=== PATIENT | female | born 1955 | race Caucasian/White ===

== ENCOUNTER 2016-12-30 08:17 | Day surgery (SDC) | payer OTHER ==
[~2016-12-30 08:17] MED LIST: LACTATED RINGERS 1,000 ML IV SCH; LIDOCAINE 1% 20 ML VIAL (10MG/ML) FOR IV START INTRADERMA PRN
[2016-12-30] MEDS ORDERED: LIDOCAINE 1% 20 ML VIAL (10MG/ML) FOR IV START SQ ONE (08:39)
[2016-12-30 08:45] VITALS: RESP 16; TEMP 98.5
[2016-12-30] MEDS ORDERED: PROPOFOL 10 MG/ML 20 ML VIAL IV ONE (09:14)
--- NOTE | 2016-12-30 09:30 | P.PCN ---
Date of Procedure: 12/30/16 Procedure(s) Performed: BRIEF HISTORY: Patient is a 61-year-old pleasant white female, scheduled for an elective colonoscopy as a part of screening for colorectal neoplasia. PROCEDURE PERFORMED: Colonoscopy with biopsy. PREOPERATIVE DIAGNOSIS: Screening for colon cancer. IV sedation per Anesthesia. PROCEDURE: After informed consent was obtained, the patient, was brought into the endoscopy unit. IV conscious sedation was administered by Anesthesia under continuous monitoring. Digital rectal examination was normal. Initially the Olympus CF-160 flexible video colonoscope was then inserted in the rectum, gradually advanced into the cecum without any difficulty. Careful examination was performed as the scope was gradually being withdrawn. Ileocecal valve and the appendiceal orifice were visualized and appeared normal. Prep was excellent. Mucosa of the cecum, appeared normal. In the ascending colon there was a diminutive polyps 2 which was removed by biopsy. The rest of the ascending colon, transverse colon, descending colon, sigmoid colon, and rectum appeared normal. Retroflexion was performed in the rectum and no lesions were seen. The patient tolerated the procedure well. IMPRESSION: 2-3 mm diminutive polyp in the ascending colon and stool status post biopsy Rest of the colon appeared normal. RECOMMENDATIONS: Findings of this examination were discussed with the patient as well as her family. She was advised to follow with the biopsy results. If the biopsy shows a tubular adenoma she can have a repeat colonoscopy in 5 years.
[2016-12-30 10:28] VITALS: BP 134/84; PULSE 87
== END 2016-12-30 10:43 | disposition home or self-care (01) ==
LOC: ORWHC2ENDO 08:17
PROVIDERS: ATTEND Internal Medicine Gastroenterology
DX: Z12.11 Encounter for screening for malignant neoplasm of colon (principal); D12.2 Benign neoplasm of ascending colon; I49.9 Cardiac arrhythmia, unspecified; R00.0 Tachycardia, unspecified; E78.5 Hyperlipidemia, unspecified; Z88.0 Allergy status to penicillin; Z79.899 Other long term (current) drug therapy
CPT/HCPCS: 88305; 45380; J2704

== ENCOUNTER → 2017-06-16 | Outpatient (CLI) | payer OTHER ==
--- NOTE | 2017-06-16 15:56 | BD ---
EXAMINATION TYPE: MG DEXA axial skeleton. DATE OF EXAM: 06/16/2017 COMPARISON: 2014 CLINICAL HISTORY: breast ca, osteopenia Height: 5'4 Weight: 186 FRAX RISK QUESTIONS: Alcohol (3 or more units per day): no Family History (Parent hip fracture): no Glucocorticoids (More than 3mos): no (Ex: prednisone, prednisolone, methylprednisolone, dexamethasone, and hydrocortisone). History of Fracture in Adulthood: no Secondary Osteoporosis: 1. Type 1 Diabetes: no 2. Hyperthyroidism: no 3. Menopause before 45: no 4. Malnutrition: no 5. Chronic liver disease: no Rheumatoid Arthritis: no Current Tobacco Use: no RISK FACTORS HISTORY OF: Postmenopausal woman: MEDICATIONS: Additional Medications: cholesterol, vitamin d , c and multivitamin. Breast cancer Additional History: breast ca EXAM MEASUREMENTS: Bone mineral densitometry was performed using the [employer] System. Bone mineral density as measured about the Lumbar spine is: ----- L1-L4(G/cm2): 1.099 T Score Values are as follows: ----- L2: -0.7 ----- L3: -1.6 ----- L4: -0.5 ----- L1-L4: -0.7 Bone mineral density has: Decreased -4.6% since study of: 06/15/2015 Bone mineral density about the R hip (g/cm2): 0.867 Bone mineral density about the L hip (g/cm2): 0.845 T Score values are as follows: -----R Neck: -1.2 -----L Neck: -1.4 -----R Total: -0.2 -----L Total: 0.2 Bone mineral density has: Increased 0.1% since study of: 06/15/2015 IMPRESSION: Osteopenia (T Score between -2.5 and -1 as noted by T score values:L3, Vimal Hips There is slightly increased risk of fracture and the patient may be considered for treatment. Re-Screen 2-5 years. Bone density within the bilateral hips is improved 0.1% from 2015. Bone density within the lumbar spi ne is diminished 4.6% from 2015. NOTE: T-SCORE=SD OF THE YOUNG ADULT MEAN.
== END | disposition home or self-care (01) ==
LOC: RADBDWWP 09:19
PROVIDERS: ATTEND Internal Medicine Hematology & Oncology
DX: M85.852 Other specified disorders of bone density and structure, left thigh (principal); M85.851 Other specified disorders of bone density and structure, right thigh; M85.88 Other specified disorders of bone density and structure, other site; C50.112 Malignant neoplasm of central portion of left female breast; N95.1 Menopausal and female climacteric states; Z79.890 Hormone replacement therapy
CPT/HCPCS: 77080

== ENCOUNTER → 2017-07-18 | Outpatient (CLI) | payer OTHER ==
--- NOTE | 2017-07-18 11:59 | XR ---
EXAMINATION TYPE: XR chest 2V DATE OF EXAM: 07/18/2017 COMPARISON: Prior chest x-ray 07/28/2016 HISTORY: Breast cancer TECHNIQUE: Frontal and lateral views of the chest are obtained. FINDINGS: There is no focal air space opacity, pleural effusion, or pneumothorax seen. The cardiac silhouette size is within normal limits. Patient is post mastectomies. There is mild spinal curvatur e. Prominent lung volume could be indicative of underlying COPD. The osseous structures are intact. IMPRESSION: No acute cardiopulmonary process.
== END | disposition home or self-care (01) ==
LOC: RADXRMAIN 11:37
PROVIDERS: ATTEND Internal Medicine Hematology & Oncology
DX: C50.112 Malignant neoplasm of central portion of left female breast (principal); I97.2 Postmastectomy lymphedema syndrome; G60.0 Hereditary motor and sensory neuropathy; Z17.0 Estrogen receptor positive status [ER+]
CPT/HCPCS: 71020

== ENCOUNTER → 2017-12-11 | Outpatient (CLI) | payer OTHER ==
[2017-12-11 11:19] VITALS: BMI 31.7
== END | disposition home or self-care (01) ==
LOC: MNTWWP 08:59
PROVIDERS: ATTEND Family Medicine
DX: R73.09 Other abnormal glucose (principal)
CPT/HCPCS: 97802

== ENCOUNTER → 2018-08-09 | Outpatient (CLI) | payer OTHER ==
--- NOTE | 2018-08-09 16:05 | XR ---
EXAMINATION TYPE: XR chest 2V DATE OF EXAM: 08/09/2018 COMPARISON: 07/18/2017 HISTORY: 63-year-old female with history of breast cancer and double mastectomy in 2013 TECHNIQUE: Frontal and lateral views FINDINGS: The cardiomediastinal silhouette, aorta, and pulmonary vasculature are within normal limits. Lungs an d pleural spaces are clear. IMPRESSION: No acute cardiopulmonary process.
== END ==
LOC: RADXRMAIN 15:38
PROVIDERS: ATTEND Internal Medicine Hematology & Oncology
DX: C50.112 Malignant neoplasm of central portion of left female breast (principal); I97.2 Postmastectomy lymphedema syndrome; G60.0 Hereditary motor and sensory neuropathy; Z17.0 Estrogen receptor positive status [ER+]
CPT/HCPCS: 71046

== ENCOUNTER → 2018-09-03 | Outpatient (CLI) | payer MEDICARE ==
--- NOTE | 2018-09-04 01:00 | MR ---
EXAMINATION TYPE: MR hips BILAT wo con DATE OF EXAM: 09/03/2018 COMPARISON: None HISTORY: Breast Cancer / Hip Pain x 6-12 mths Standard multiplanar, multisequence MRI departmental protocol Multiplanar, multisequence images of the hips were acquired. FINDINGS: There is 5 mm area of increased fluid signal in the lateral aspect of the right femoral hea d consistent with a degenerative cyst. Hip joint spaces are fairly normal. There is no evidence of av ascular necrosis. Proximal femurs are intact. There is no evidence of a soft tissue mass. I see no ev idence of a pelvic mass. Bladder distends smoothly. There is no free fluid in the pelvis. The acetabu la appear intact. Sacrum and coccyx appear intact. I do not see a definite focus to suggest metastati c disease. There is symmetric normal amount of hip joint fluid. IMPRESSION: Small degenerative cysts in the right femoral head. No evidence of any significant arthritic disease. I do not see evidence for metastatic disease. No evidence of avascular necrosis.
== END | disposition home or self-care (01) ==
LOC: RADMRIMAIN 07:06
PROVIDERS: ATTEND Internal Medicine Hematology & Oncology
DX: M85.651 Other cyst of bone, right thigh (principal); M25.552 Pain in left hip; C50.112 Malignant neoplasm of central portion of left female breast

== ENCOUNTER → 2019-06-17 | Outpatient (CLI) | payer MEDICARE ==
--- NOTE | 2019-06-18 11:54 | BD ---
EXAMINATION TYPE: Axial Bone Density DATE OF EXAM: 06/17/2019 COMPARISON: 2017 CLINICAL HISTORY: M 85.9, C 50.112 Height: 63.5 Weight: 166 FRAX RISK QUESTIONS: Alcohol (3 or more units per day): no Family History (Parent hip fracture): no Glucocorticoids (More than 3mos): no (Ex: prednisone, prednisolone, methylprednisolone, dexamethasone, and hydrocortisone). History of Fracture in Adulthood: no Secondary Osteoporosis: 1. Type 1 Diabetes: no 2. Hyperthyroidism: no 3. Menopause before 45: no 4. Malnutrition: no 5. Chronic liver disease: no Rheumatoid Arthritis: no Current Tobacco Use: no RISK FACTORS HISTORY OF: Family History of Osteoporosis: yes Active: yes Diet low in dairy products/other sources of calcium: no Postmenopausal woman: yes Take estrogen and/or progesterone medications: not now How long: hormonal contraceptives about 8 years Lost more than 2 inches in height since high school: no Frequent falls: no Poor Health: no Hyperparathyroidism: no Adrenal Insufficiency: no MEDICATIONS: Prednisone or other steroids: no Thyroid Medications: no Osteoporosis Medications: no Additional Medications: Femara ; cholesterol med; med for occasional tachycardia, Vitamin D, C & mult ivitamin Additional History: breast CA/radiation (fx both forearms as a child) EXAM MEASUREMENTS: Bone mineral densitometry was performed using the [employer] System. Bone mineral density as measured about the Lumbar spine is: ----- L1-L4(G/cm2): 1.045 T Score Values are as follows: ----- L2: -1.3 ----- L3: -1.4 ----- L4: -1.7 ----- L1-L4: -1.1 Bone mineral density has: Decreased -6.0% since study of: 06/16/2017 Bone mineral density about the R hip (g/cm2): 0.866 Bone mineral density about the L hip (g/cm2): 0.820 T Score values are as follows: -----R Neck: -1.2 -----L Neck: -1.6 -----R Total: -0.4 -----L Total: -0.2 Bone mineral density has: Decreased -4.1% since study of: 06/16/2017 IMPRESSION: Osteopenia (T Score between -2.5 and -1). There is slightly increased risk of fracture and the patient may be considered for treatment. Re-Screen 2-5 years. NOTE: T-SCORE=SD OF THE YOUNG ADULT MEAN.
== END | disposition home or self-care (01) ==
LOC: RADBDWWP 10:27
PROVIDERS: ATTEND Internal Medicine Hematology & Oncology
DX: M85.851 Other specified disorders of bone density and structure, right thigh (principal); M85.852 Other specified disorders of bone density and structure, left thigh; M85.88 Other specified disorders of bone density and structure, other site; C50.112 Malignant neoplasm of central portion of left female breast
CPT/HCPCS: 77080

== ENCOUNTER → 2020-10-07 | Outpatient (CLI) | payer MEDICARE ==
--- NOTE | 2020-10-09 16:18 | BD ---
EXAMINATION TYPE: Axial Bone Density DATE OF EXAM: 10/07/2020 COMPARISON: NONE CLINICAL HISTORY: Height: 64 Weight: 176.4 FRAX RISK QUESTIONS: Alcohol (3 or more units per day): no Family History (Parent hip fracture): no Glucocorticoids (More than 3mos): no (Ex: prednisone, prednisolone, methylprednisolone, dexamethasone, and hydrocortisone). History of Fracture in Adulthood: no Secondary Osteoporosis: 1. Type 1 Diabetes: no 2. Hyperthyroidism: no 3. Menopause before 45: no 4. Malnutrition: no 5. Chronic liver disease: no Rheumatoid Arthritis: no Current Tobacco Use: no RISK FACTORS HISTORY OF: History of Wrist Fracture: bilateral as a child Surgery to Spine/Hip(right/left)/Wrist (right/left): no Family History of Osteoporosis: yes Active: yes Diet low in dairy products/other sources of calcium: no Lost more than 2 inches in height since high school: no MEDICATIONS: letrozole, simvastatin, tachycardia med Additional History: EXAM MEASUREMENTS: Bone mineral densitometry was performed using the [employer] System. Bone mineral density as measured about the Lumbar spine is: ----- L1-L4(G/cm2): 1.115 T Score Values are as follows: ----- L2: -0.9 ----- L3: -1.1 ----- L4: -0.6 ----- L1-L4: -0.5 Bone mineral density has: increased 7.5 % since study of: 06.17.2019 Bone mineral density about the R hip (g/cm2): 0.856 Bone mineral density about the L hip (g/cm2): 0.838 T Score values are as follows: -----R Neck: -1.3 -----L Neck: -1.4 -----R Total: -0.3 -----L Total: 0.0 Bone mineral density has: increased 2.4 % since study of: 06.17.2019 IMPRESSION: Osteopenia (T Score between -2.5 and -1). There is slightly increased risk of fracture and the patient may be considered for treatment. Re-Screen 2-5 years. NOTE: T-SCORE=SD OF THE YOUNG ADULT MEAN.
== END | disposition home or self-care (01) ==
LOC: RADBDWWP 15:25
PROVIDERS: ATTEND Family Medicine
DX: M85.80 Other specified disorders of bone density and structure, unspecified site (principal)
CPT/HCPCS: 77080

== ENCOUNTER → 2021-07-27 | Outpatient (CLI) | payer MEDICARE ==
--- NOTE | 2021-07-27 20:00 | BD ---
EXAMINATION TYPE: Axial Bone Density DATE OF EXAM: 07/27/2021 COMPARISON: 10/07/2020 CLINICAL HISTORY: Postmenopausal screening Height: 64 Weight: 178.8 FRAX RISK QUESTIONS: Alcohol (3 or more units per day): no Family History (Parent hip fracture): no Glucocorticoids (More than 3mos): no (Ex: prednisone, prednisolone, methylprednisolone, dexamethasone, and hydrocortisone). History of Fracture in Adulthood: no Secondary Osteoporosis: 1. Type 1 Diabetes: no 2. Hyperthyroidism: no 3. Menopause before 45: no 4. Malnutrition: no 5. Chronic liver disease: no Rheumatoid Arthritis: no Current Tobacco Use: no RISK FACTORS HISTORY OF: Surgery to Spine/Hip(right/left)/Wrist (right/left): no Family History of Osteoporosis: yes Active: yes Diet low in dairy products/other sources of calcium: no Postmenopausal woman: yes Lost more than 2 inches in height since high school: no MEDICATIONS: letrozole, simvastatin, vitamins, calcium Additional History: EXAM MEASUREMENTS: Bone mineral densitometry was performed using the [employer] System. Bone mineral density as measured about the Lumbar spine is: ----- L1-L4(G/cm2): 1.041 T Score Values are as follows: ----- L2: -1.4 ----- L3: -1.1 ----- L4: -1.6 ----- L1-L4: -1.2 Bone mineral density has: decreased -6.1 % since study of: 10.07.2020 Bone mineral density about the R hip (g/cm2): 0.850 Bone mineral density about the L hip (g/cm2): 0.839 T Score values are as follows: -----R Neck: -1.3 -----L Neck: -1.4 -----R Total: -0.3 -----L Total: -0.2 Bone mineral density has: decreased -1.4 % since study of: 10.07.2020 IMPRESSION: Osteopenia (T Score between -2.5 and -1). There is slightly increased risk of fracture and the patient may be considered for treatment. Re-Screen 2-5 years. NOTE: T-SCORE=SD OF THE YOUNG ADULT MEAN.
== END | disposition home or self-care (01) ==
LOC: RADBDWWP 08:40
PROVIDERS: ATTEND Internal Medicine Hematology & Oncology
DX: Z13.820 Encounter for screening for osteoporosis (principal); M85.89 Other specified disorders of bone density and structure, multiple sites; Z79.899 Other long term (current) drug therapy
CPT/HCPCS: 77080

== ENCOUNTER 2022-06-24 11:31 | Day surgery (SDC) | payer MEDICARE ==
[~2022-06-24 11:31] MED LIST changes: +LIDOCAINE 1% (10MG/ML) FOR IV START INTRADERMA PRN; -LIDOCAINE 1% 20 ML VIAL (10MG/ML) FOR IV START INTRADERMA PRN
[2022-06-24 12:16] VITALS: TEMP 97.4
[2022-06-24] MEDS ORDERED: LACTATED RINGERS 1,000 ML IV ONE (12:17)
[2022-06-24] MEDS ORDERED: PROPOFOL 10 MG/ML 20 ML VIAL IV ONE (14:25)
--- NOTE | 2022-06-24 14:49 | P.PCN ---
Date of Procedure: 06/24/22 Procedure(s) Performed: BRIEF HISTORY: Patient is a 66-year-old pleasant white female scheduled for an elective colonoscopy as a part of evaluation of prior history of colon polyps. PROCEDURE PERFORMED: Colonoscopy snare polypectomy. PREOPERATIVE DIAGNOSIS: History of colon polyps. IV sedation per Anesthesia. PROCEDURE: After informed consent was obtained, the patient, was brought into the endoscopy unit. IV sedation was administered by Anesthesia under continuous monitoring. Digital rectal examination was normal. Initially the Olympus CF-160 flexible video colonoscope was then inserted in the rectum, gradually advanced into the cecum without any difficulty. Careful examination was performed as the scope was gradually being withdrawn. Ileocecal valve and the appendiceal orifice were visualized and appeared normal. Prep was excellent. Mucosa of the cecum, had a 5 limited polyp that was removed by snare polypectomy. Rest of the ascending colon, transverse colon, descending colon, sigmoid colon, and rectum appeared normal. Retroflexion was performed in the rectum and no lesions were s een. The patient tolerated the procedure well. IMPRESSION: 5 mm cecal polyp status post snare polypectomy Rest of the colon appeared normal RECOMMENDATIONS: Findings of this examination were discussed with the patient as well as her family. She was advised to follow with the biopsy results and if the biopsy results adenoma she can have a repeat colonoscopy in 5 years..
[2022-06-24 15:06] VITALS: BP 133/85; PULSE 80; RESP 16
== END 2022-06-24 15:26 | disposition home or self-care (01) ==
LOC: ORWHC2ENDO 11:31
PROVIDERS: ATTEND Internal Medicine Gastroenterology
DX: Z12.11 Encounter for screening for malignant neoplasm of colon (principal); D12.0 Benign neoplasm of cecum; Z86.010 Personal history of colon polyps; Z88.0 Allergy status to penicillin; Z88.1 Allergy status to other antibiotic agents; Z79.899 Other long term (current) drug therapy; Z85.3 Personal history of malignant neoplasm of breast
CPT/HCPCS: 88305; 45385; J2704

== ENCOUNTER → 2023-06-13 | Outpatient (CLI) | payer MEDICARE ==
--- NOTE | 2023-06-13 18:37 | BD ---
EXAMINATION TYPE: Axial Bone Density DATE OF EXAM: 06/13/2023 CLINICAL HISTORY: 67 years old Female. ICD-10 CODE: C50.112 MALIGNANT NEOPLASM OF CENTRAL PORTION OF L Height: 63.75" Weight: 182.7 FRAX RISK QUESTIONS: Alcohol (3 or more units per day): No Family History (Parent hip fracture): No Glucocorticoids (More than 3mos): No (Ex: prednisone, prednisolone, methylprednisolone, dexamethasone, and hydrocortisone). History of Fracture in Adulthood: No Secondary Osteoporosis: 1. Type 1 Diabetes: No 2. Hyperthyroidism: No 3. Menopause before 45: No 4. Malnutrition: No 5. Chronic liver disease: No Rheumatoid Arthritis: No Current Tobacco Use: No RISK FACTORS HISTORY OF: Hip Fracture (Right/Left): No Spine Fracture: No History of Wrist Fracture: No Surgery to Spine/Hip(right/left)/Wrist (right/left): No Family History of Osteoporosis: No Active: Yes Diet low in dairy products/other sources of calcium: No Postmenopausal woman: Yes Lost more than 2 inches in height since high school: No Frequent falls: No Poor Health: No Hyperparathyroidism: No Adrenal Insufficiency: No MEDICATIONS: Prednisone or other steroids: No Thyroid Medications: No Osteoporosis Medications: No Additional Medications: Simvastatin, blood pressure medication/heart medication, roloxefene, vitamin c, calcium, multivitamin, vitamin D, omega, glucosamine, low-dose aspirin Additional History: Hx of breast cancer 2012 EXAM MEASUREMENTS: Bone mineral densitometry was performed using the [employer] System. Bone mineral density as measured about the Lumbar spine is: ----- L1-L4(G/cm2): 1.142 T Score Values are as follows: ----- L1: 0.1 ----- L2: -1.0 ----- L3: -0.7 ----- L4: 0.0 ----- L1-L4: -0.3 Z Score Values are as follows: ----- L1: 1.1 ----- L2: 0.1 ----- L3: 0.4 ----- L4: 1.1 ----- L1-L4: 0.8 Bone mineral density has: increased 9.7% since study of: 07/27/2021 Bone mineral density about the R hip (g/cm2): 1.045 Bone mineral density about the L hip (g/cm2): 0.972 T Score values are as follows: -----R Neck: -0.8 -----L Neck: -1.5 -----R Total: 0.3 -----L Total: -0.3 Z Score values are as follows: -----R Neck: 0.5 -----L Neck: -0.2 -----R Total: 1.3 -----L Total: 0.7 Bone mineral density has: increased 3.6% since study of: 07/27/2021 FRAX%s: The graph provided illustrates a 9.5% chance for a major osteoporotic fx and a 1.3% chance fo r the hips probability for fx in 10 years time. IMPRESSION: Osteopenia (T Score between -2.5 and -1). There is slightly increased risk of fracture and the patient may be considered for treatment. Re-Screen 2-5 years. NOTE: T-SCORE=SD OF THE YOUNG ADULT MEAN.
== END | disposition home or self-care (01) ==
LOC: RADBDWWP 09:50
PROVIDERS: ATTEND Internal Medicine Hematology & Oncology
DX: C50.112 Malignant neoplasm of central portion of left female breast (principal); M85.89 Other specified disorders of bone density and structure, multiple sites; I97.2 Postmastectomy lymphedema syndrome; G60.0 Hereditary motor and sensory neuropathy; Z17.0 Estrogen receptor positive status [ER+]
CPT/HCPCS: 77080

== ENCOUNTER 2023-06-20 17:37 | Inpatient (IN) | payer MEDICARE ==
[2023-06-20 18:34] LABS: Basophils % (A) 1 %; Eosinophils # (A) 0.1 k/uL (0-0.7); Eosinophils % (A) 2 %; HCT 43.9 % (34.0-46.0); HGB 15.4 gm/dL (11.4-16.0); Lymphocytes # (A) 2.4 k/uL (1.0-4.8); Lymphocytes % (A) 33 %; MCH 34.2 pg (25.0-35.0); MCHC 35.1 g/dL (31.0-37.0); MCV 97.3 fL (80.0-100.0); Mean Platelet Volume 9.3; Monocytes # (A) 0.4 k/uL (0-1.0); Monocytes % (A) 5 %; Neutrophils % (A) 57 %; Platelet Count 165 k/uL (150-450); RBC 4.51 m/uL (3.80-5.40); RDW 11.8 % (11.5-15.5)
[2023-06-20] MEDS: DILTIAZEM 125 MG in SODIUM CHLORIDE 0.9% 100 ML IV SCH (18:34)
--- NOTE | 2023-06-20 18:38 | ED ---
General Adult HPI - General Chief complaint: Arrhythmia/Palpitations Stated complaint: Fast Heart Beat, Sent by her Cardio PCP Time Seen by Provider: 06/20/23 17:54 Source: patient Mode of arrival: ambulatory Limitations: no limitations - History of Present Illness Initial comments: Dictation was produced using [employer] dictation software. please excuse any grammatical, word or spelling errors. Chief Complaint: Palpitations History of Present Illness: 77-year-old female states that since last several years she is developed tachycardia of unclear etiology diagnosis. She also put Dr. Adam. Patient has been having increased duration and intensity of tachycardia. She remained well controlled on metoprolol recently. 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 She was sent to the ER for admission with cardiac monitoring and cardiology consultation. Patient states palpitations have been intermittent for the last 3-4 days. No associated chest pain. She feels like her heart is flipping around in her chest. Denies any nausea or lightheadedness. The ROS documented in this emergency department record has been reviewed and confirmed by me. Those systems with pertinent positive or negative responses have been documented in the HPI. All other systems are other negative and/or noncontributory. - Related Data Home Medications Medication Instructions Recorded Confirmed Ascorbic Acid [Vitamin C] 1 tab PO DAILY 12/27/16 06/20/23 Glucosamine Sulfate 500 mg PO DAILY 12/27/16 06/20/23 Multivitamins, Thera [Multivitamin] 1 tab PO DAILY 12/27/16 06/20/23 Simvastatin [Zocor] 40 mg PO DAILY 12/27/16 06/20/23 Calcium Carbonate/Vitamin D3 2 cap PO DAILY 04/28/22 06/20/23 [Calcium 600 mg-D3 10 Mcg (400 Iu)] [place]-3 Fatty Acids/Fish Oil 1 cap PO DAILY 04/28/22 06/20/23 [[place]-3 Fish Oil 1,200 mg Sfgl] Quercetin 500 mg PO DAILY 04/28/22 06/20/23 Raloxifene [Evista] 60 mg PO DAILY 04/28/22 06/20/23 Zinc 50 mg PO DAILY 04/28/22 06/20/23 Metoprolol Succinate (ER) [Toprol 12.5 mg PO DAILY 06/23/22 06/20/23 Xl] Aspirin EC [Ecotrin Low Dose] 81 mg PO DAILY 06/20/23 06/20/23 Loratadine [Claritin] 10 mg PO DAILY PRN 06/20/23 06/20/23 Allergies Allergy/AdvReac Type Severity Reaction Status Date / Time Penicillins Allergy Unknown Verified 06/20/23 18:37 Childhood tetracycline Allergy Unknown Verified 06/20/23 18:37 Review of Systems ROS Statement: Those systems with pertinent positive or pertinent negative responses have been documented in the HPI. ROS Other: All systems not noted in ROS Statement are negative. Past Medical History Past Medical History: Cancer Additional Past Medical History / Comment(s): Tachycardia, was dx. since teenage years with tachycardia & irregular heart rate. History of Any Multi-Drug Resistant Organisms: None Reported Past Surgical History: Breast Surgery, Tubal Ligation Additional Past Surgical History / Comment(s): Double Mastectomy Past Anesthesia/Blood Transfusion Reactions: No Reported Reaction Past Psychological History: No Psychological Hx Reported Smoking Status: Never smoker - Past Family History Mother Family Medical History: No Reported History General Exam - General Exam Comments Initial Comments: PHYSICAL EXAM: General Impression: Alert and oriented x3, not in acute distress HEENT: Normocephalic atraumatic, extra-ocular movements intact, pupils equal and reactive to light bilaterally, mucous membranes moist. Cardiovascular: Tachycardic Chest: Able to complete full sentences, no retractions, no tachypnea Abdomen: abdomen soft, non-tender, non-distended, no organomegaly Musculoskeletal: Pulses present and equal in all extremities, no peripheral edema Motor: no focal deficits noted Neurological: CN II-XII grossly intact, no focal motor or sensory deficits noted Skin: Intact with no visualized rashes Psych: Normal affect and mood Limitations: no limitations Course Vital Signs 06/20/23 06/20/23 06/20/23 17:45 18:21 18:30 Temperature 98.0 F Pulse Rate 116 H 105 H 149 H Pulse Rate [ 190 H Apical] Respiratory 18 18 16 Rate Blood Pressure 165/106 164/115 163/125 O2 Sat by Pulse 97 95 97 Oximetry 06/20/23 06/20/23 18:39 19:18 Temperature Pulse Rate 88 122 H Pulse Rate [ Apical] Respiratory 16 18 Rate Blood Pressure 156/114 147/105 O2 Sat by Pulse 97 94 L Oximetry - Reevaluation(s) Reevaluation #1: 06/20/23 18:36 Patient seen in room #2. She would go in and out of tachycardia dysrhythmia with rates up to 190. She would spontaneously revert to rates of 1 teens. She did not appear to be symptomatic during these episodes of high rates. EKG Findings - EKG Comments: EKG Findings:: My EKG interpretation: Ventricular rate 196, narrow complex tachycardia, QRS 106, QTC 282. No ID prolongation, no QTC prolongation. No depressions in lateral precordial leads. No ST elevations. Likely represents rate dependent ischemia Medical Decision Making - Medical Decision Making Was pt. sent in by a medical professional or institution (, PA, BUSINESS SERVICES SALES REPRESENTATIVE, urgent care, hospital, or usp...) When possible be specific @ -Sent in from cardiology office Did you speak to anyone other than the patient for history (EMS, parent, family, police, friend...)? What history was obtained from this source @ -No Did you review nursing and triage notes (agree or disagree)? Why? @ -I reviewed and agree with nursing and triage notes Were old charts reviewed (outside hosp., previous admission, EMS record, old EKG, old radiological studies, urgent care reports/EKG's, usp records)? Report findings @ -No old charts were reviewed Differential Diagnosis (chest pain, altered mental status, abdominal pain women, abdominal pain men, vaginal bleeding, musculoskeletal, weakness, fever, dyspnea, syncope, headache, dizziness, GI bleed, back pain, seizure, CVA, palpatations, mental health)? @ - Differential Palpitations: Ventricular arrhythmias, atrial arrhythmias, myocardial infarction, anemia, thyrotoxicosis, electrolyte imbalance, hypokalemia, pulmonary embolism, pulmonary disease, drugs, alcohol, anxiety, stress.... This is not meant to be an all-inclusive list. EKG interpreted by me (3pts min.). @ -See above X-rays interpreted by me (1pt min.). @ -Chest x-ray shows no acute processes CT interpreted by me (1pt min.). @ -None done U/S interpreted by me (1pt. min.). @ -None done What testing was considered but not performed or refused? (CT, X-rays, U/S, labs)? Why? @ -None What meds were considered but not given or refused? Why? @ -None Did you discuss the management of the patient with other professionals (professionals i.e. DrLaura, PA, BUSINESS SERVICES SALES REPRESENTATIVE, lab, RT, psych nurse, social insurance specialist, oil field operator, teacher, compliance review officer, correctional case manager)? Give summary @ -Discussed Dr. Boston, the social services analyst for ICU admission. The cautious aware patient will assume care while inpatient Was smoking cessation discussed for >3mins.? @ -No Was critical care preformed (if so, how long)? @ -Yes, 33 minutes Were there social determinants of health that impacted care today? How? (Homelessness, low income, unemployed, alcoholism, drug addiction, t ransportation, low edu. Level, literacy, decrease access to med. care, [facility], rehab)? @ -No Was there de-escalation of care discussed even if they declined (Discuss DNR or withdrawal of care, Hospice)? DNR status @ -No What co-morbidities impacted this encounter? (DM, HTN, Smoking, COPD, CAD, Cancer, CVA, ARF, Chemo, Hep., AIDS, mental health diagnosis, sleep apnea, morbid obesity)? @ -None Was patient admitted / discharged? Hospital course, mention meds given and route, prescriptions, significant lab abnormalities, going to OR and other pertinent info. @ -67-year-old female past medical history of tachydysrhythmia for several years. Vital signs are stable. Patient is has episodes that will last for several seconds of narrow complex tachydysrhythmia. Rate on her own. She started on Cardizem drip per request by cardiology. Laboratory evaluation obtained labs are within acceptable limits. Patient be monitored in ICU. Cardiology consulted. Undiagnosed new problem with uncertain prognosis? @ -No Drug Therapy requiring intensive monitoring for toxicity (Heparin, Nitro, Insulin, Cardizem)? @ -No Were any procedures done? @ -No Diagnosis/symptom? Acute, or Chronic, or Acute on Chronic? Uncomplicated (without systemic symptoms) or Complicated (systemic symptoms)? @ -Tachydysrhythmia Side effects of treatment? @ -No Exacerbation, Progression, or Severe Exacerbation? @ -No Poses a threat to life or bodily function? How? (Chest pain, [place], AL, pneumonia, PE, COPD, DKA, ARF, appy, cholecystitis, CVA, Diverticulitis, Homicidal, Suicidal, threat to staff... and all critical care pts) @ -yes - Lab Data Result diagrams: 06/20/23 18:20 06/20/23 18:20 Lab Results 06/20/23 06/20/23 Range/Units 18:20 18:20 WBC 7.0 (3.8-10.6) k/uL RBC 4.51 (3.80-5.40) m/uL Hgb 15.4 (11.4-16.0) gm/dL Hct 43.9 (34.0-46.0) % MCV 97.3 (80.0-100.0) fL MCH 34.2 (25.0-35.0) pg MCHC 35.1 (31.0-37.0) g/dL RDW 11.8 (11.5-15.5) % Plt Count 165 (150-450) k/uL MPV 9.3 Neutrophils % 57 % Lymphocytes % 33 % Monocytes % 5 % Eosinophils % 2 % Basophils % 1 % Neutrophils # 4.0 (1.3-7.7) k/uL Lymphocytes # 2.4 (1.0-4.8) k/uL Monocytes # 0.4 (0-1.0) k/uL Eosinophils # 0.1 (0-0.7) k/uL Basophils # 0.0 (0-0.2) k/uL Sodium 139 (137-145) mmol/L Potassium 4.1 (3.5-5.1) mmol/L Chloride 107 (98-107) mmol/L Carbon Dioxide 20 L (22-30) mmol/L Anion Gap 12 mmol/L BUN 20 H (7-17) mg/dL Creatinine 0.61 (0.52-1.04) mg/dL Est GFR (CKD-EPI)AfAm >90 (>60 ml/min/1.73 sqM) Est GFR (CKD-EPI)NonAf >90 (>60 ml/min/1.73 sqM) Glucose 107 H (74-99) mg/dL Calcium 10.6 H (8.4-10.2) mg/dL Magnesium 1.8 (1.6-2.3) mg/dL Total Bilirubin 0.8 (0.2-1.3) mg/dL AST 30 (14-36) U/L ALT 32 (4-34) U/L Alkaline Phosphatase 96 (38-126) U/L Total Protein 7.0 (6.3-8.2) g/dL Albumin 4.0 (3.5-5.0) g/dL Disposition Clinical Impression: Tachycardia Disposition: ADMITTED IP TO THIS [facility] Condition: Serious Referrals: Marcus Burnett DO [Primary Care Provider] - 1-2 days Decision Time: 19:45
[2023-06-20 19:02] LABS: ALT 32 U/L (4-34); AST 30 U/L (14-36); African American GFR (CKD) >90 (>60 ml/min/1.73 sqM); Alkaline Phosphatase 96 U/L (38-126); Anion Gap 12 mmol/L; Blood Urea Nitrogen 20 mg/dL (7-17); Calcium 10.6 mg/dL (8.4-10.2); Carbon Dioxide 20 mmol/L (22-30); Chloride 107 mmol/L (98-107); Glucose 107 mg/dL (74-99); Magnesium 1.8 mg/dL (1.6-2.3); Non-African American GFR(CKD) >90 (>60 ml/min/1.73 sqM); Potassium 4.1 mmol/L (3.5-5.1); Sodium 139 mmol/L (137-145); Total Bilirubin 0.8 mg/dL (0.2-1.3)
[2023-06-20] MEDS ORDERED: NALOXONE 0.4 MG/ML 1 ML VIAL IV PRN (19:34)
[2023-06-20] MEDS: SODIUM CHLORIDE 0.9% 1,000 ML IV SCH (19:53)
--- NOTE | 2023-06-20 19:53 | XR ---
EXAMINATION TYPE: XR chest 1V portable DATE OF EXAM: 06/20/2023 7:35 PM COMPARISON: Chest radiographs from increased since 18 TECHNIQUE: XR chest 1V portable Frontal view of the chest. CLINICAL INDICATION:Female, 67 years old with history of palpitations; FINDINGS: Lungs/Pleura: There is no evidence of pleural effusion, focal consolidation, or pneumothorax. Pulmonary vascularity: Unremarkable. Heart/mediastinum: Cardiomediastinal silhouette is enlarged and stable. Musculoskeletal: No acute osseous pathology. IMPRESSION: No acute cardiopulmonary disease/process.
[2023-06-20 20:22] LABS: Glucose,Whole Blood 116 mg/dL (70-110)
--- NOTE | 2023-06-21 02:43 | P.CNPUL ---
History of Present Illness Consult date: 06/21/23 Requesting physician: [place] [facility] Reason for consult: other (ICU management) Chief complaint: Heart palpitations History of present illness: I am seeing this patient in new consultation today 07/01/2023 in the intensive care unit after she was directed to the emergency room from her senior cost analyst's office for persistent SVT. Patient is a 67-year-old white female with past medical history significant for tachyarrhythmias, which she's had since she was a teenager, hyperlipidemia, and breast cancer status post double mastectomy. Patient started to experience heart palpitations and lightheadedness two nights ago, and scheduled an appointment with her senior cost analyst Dr. Adam yesterday. W analia at the office, the patient was found to be tachycardic around 180 bpm. Vagal maneuvers were attempted, but the patient's tachycardia was persistent, and she was directed to the emergency room. On arrival, ECG shows SVT, and the patient was started on Cardizem infusion. Per the patient, there may be plans for ablation in the future. Patient is currently sitting up in bed, on room air, in no acute distress. She denies any chest pain, current heart palpitations, lightheadedness, syncope, or lower extremity swelling. Cardizem is currently infusing at 10 mg per hour. Heart rate appears well controlled in the 70s. Bedside monitor shows normal sinus rhythm with frequent PACs. Blood pressure is normotensive. CBC and BMP on arrival were unremarkable. Normal saline is infusing at 20 ML's per hour. Left arm is edematous, this is chronic and due to her history of mastectomy. Patient appears to be doing better, and will be monitored in the intensive care unit overnight. Review of Systems REVIEW OF SYSTEMS: CONSTITUTIONAL: Denies any recent significant weight loss or weight gain. EYES: Denies change in vision. EARS, NOSE, MOUTH, THROAT: Denies headaches, denies sore throat. CARDIOVASCULAR: See HPI RESPIRATORY: Denies shortness of breath, cough, congestion or hemoptysis. GASTROINTESTINAL: Denies change in appetite, abdominal pain, nausea and vomiting, or diarrhea GENITOURINARY: Denies hematuria, denies infections. MUSKULOSKELETAL: Denies pain, Admits chronic left arm swelling INTEGUMENTARY: Denies rash, denies eczema. NEUROLOGICAL: Denies recent memory loss, no recent seizure activity. PSYCHIATRIC: Denies anxiety, denies depression. HEMATOLOGIC/LYMPHATIC: Denies anemia, denies enlarged lymph node Past Medical History Past Medical History: Cancer Additional Past Medical History / Comment(s): Tachycardia, was dx. since teenage years with tachycardia & irregular heart rate. History of Any Multi-Drug Resistant Organisms: None Reported Past Surgical History: Breast Surgery, Tubal Ligation Additional Past Surgical History / Comment(s): Double Mastectomy Past Anesthesia/Blood Transfusion Reactions: No Reported Reaction Past Psychological History: No Psychological Hx Reported Smoking Status: Never smoker Past Alcohol Use History: Rare Past Drug Use History: None Reported - Past Family History Mother Family Medical History: No Reported History Medications and Allergies Home Medications Medication Instructions Recorded Confirmed Type Ascorbic Acid [Vitamin C] 1 tab PO DAILY 12/27/16 06/20/23 History Glucosamine Sulfate 500 mg PO DAILY 12/27/16 06/20/23 History Multivitamins, Thera [Multivitamin] 1 tab PO DAILY 12/27/16 06/20/23 History Simvastatin [Zocor] 40 mg PO DAILY 12/27/16 06/20/23 History Calcium Carbonate/Vitamin D3 2 cap PO DAILY 04/28/22 06/20/23 History [Calcium 600 mg-D3 10 Mcg (400 Iu)] [place]-3 Fatty Acids/Fish Oil 1 cap PO DAILY 04/28/22 06/20/23 History [[place]-3 Fish Oil 1,200 mg Sfgl] Quercetin 500 mg PO DAILY 04/28/22 06/20/23 History Raloxifene [Evista] 60 mg PO DAILY 04/28/22 06/20/23 History Zinc 50 mg PO DAILY 04/28/22 06/20/23 History Metoprolol Succinate (ER) [Toprol 12.5 mg PO DAILY 06/23/22 06/20/23 History Xl] Aspirin EC [Ecotrin Low Dose] 81 mg PO DAILY 06/20/23 06/20/23 History Loratadine [Claritin] 10 mg PO DAILY PRN 06/20/23 06/20/23 History Allergies Allergy/AdvReac Type Severity Reaction Status Date / Time Penicillins Allergy Unknown Verified 06/20/23 18:37 Childhood tetracycline Allergy Unknown Verified 06/20/23 18:37 Physical Exam Vitals: Vital Signs Temp Pulse Pulse Resp BP Pulse Ox 06/21/23 01:00 77 13 121/75 92 L 06/21/23 00:50 77 16 121/75 91 L 06/21/23 00:40 73 14 121/75 96 06/21/23 00:30 77 14 136/70 94 L 06/21/23 00:26 76 16 136/70 94 L 06/21/23 00:20 79 16 136/70 95 06/21/23 00:10 76 15 136/70 94 L 06/21/23 00:00 97.9 F 88 81 15 115/78 97 06/20/23 23:50 70 11 L 115/78 92 L 06/20/23 23:40 84 12 115/78 95 06/20/23 23:30 76 14 134/80 96 06/20/23 23:20 76 18 134/80 91 L 06/20/23 23:10 68 8 L 134/80 96 06/20/23 23:00 93 16 138/78 95 06/20/23 22:50 80 18 138/78 94 L 06/20/23 22:40 85 17 138/78 93 L 06/20/23 22:30 87 8 L 151/94 95 06/20/23 22:20 95 7 L 151/94 96 06/20/23 22:10 90 10 L 151/94 95 06/20/23 22:00 94 21 149/102 95 06/20/23 21:50 99 12 149/102 96 06/20/23 21:40 92 8 L 149/102 96 06/20/23 21:30 102 H 40 H 144/90 94 L 06/20/23 21:20 89 12 144/90 91 L 06/20/23 21:10 90 10 L 144/90 92 L 06/20/23 21:00 98.2 F 90 15 138/85 94 L 06/20/23 20:50 184 H 10 L 138/85 96 06/20/23 20:40 90 11 L 138/85 97 06/20/23 20:30 99 184 H 23 156/114 95 06/20/23 20:20 192 H 10 L 06/20/23 20:00 101 H 20 159/81 98 06/20/23 19:18 122 H 18 147/105 94 L 06/20/23 18:39 88 16 156/114 97 06/20/23 18:30 149 H 16 163/125 97 06/20/23 18:21 105 H 190 H 18 164/115 95 06/20/23 17:45 98.0 F 116 H 18 165/106 97 Intake and Output 06/20/23 06/20/23 06/21/23 14:59 22:59 06:59 Intake Total 40 60 Output Total 350 Balance 40 -290 Intake: IV 40 60 Sodium Chloride 0.9% 1, 40 60 000 ml @ 20 mls/hr IV . Q24H [facility] Rx#:[id number] Output: Urine 350 Other: Voiding Method External Catheter External Catheter Weight 83.915 kg GENERAL EXAM: Alert, 67-year-old white female, comfortable in no apparent distress. HEAD: Normocephalic and atraumatic EYES: Normal reaction of pupils, equal size. NOSE: Clear with pink turbinates. THROAT: No erythema or exudates. NECK: No masses, no JVD. CHEST: No chest wall deformity. LUNGS: Equal air entry with no crackles, wheeze, rhonchi or dullness. On room air. No conversational dyspnea or accessory muscle use.. CVS: S1 and S2 normal with no audible murmur, regular rhythm. No extra heart makayla nds. There are frequent PACs on bedside monitor ABDOMEN: No hepatosplenomegaly, active bowel sounds, no guarding or rigidity. SPINE: No scoliosis or deformity SKIN: No rashes CENTRAL NERVOUS SYSTEM: No focal deficits, tone is normal in all 4 extremities. EXTREMITIES: There is left arm lymphedema. No clubbing, or cyanosis. Peripheral pulses are intact. Results - Laboratory Findings CBC and BMP: 06/20/23 18:20 06/20/23 18:20 Abnormal lab findings: Abnormal Labs 06/20/23 06/20/23 18:20 20:20 Carbon Dioxide 20 L BUN 20 H Glucose 107 H POC Glucose (mg/dL) 116 H Calcium 10.6 H - Diagnostic Findings Chest x-ray: image reviewed Assessment and Plan Assessment: Paroxysmal supraventricular tachycardia, currently on Cardizem infusion at 10 mg per hour. Hyperlipidemia History of breast cancer status post double mastectomy Left arm lymphedema related to above Obesity, with a BMI of 34 kg/m Plan: Patient's medications, labs, chest x-ray reviewed On room air Cardizem is infusing at 10 mg per hour, heart rate is better controlled BP is normotensive, and the patient is overall asymptomatic Cardiology is following According to the patient, there may be plans for future ablation We will continue to follow the patient while in the intensive care unit I have personally seen and examined the patient, performed the documentation and the assessment and plan as written. Number of minutes spent on the visit:20 Time with Patient: Greater than 30
[2023-06-21] MEDS: DILTIAZEM 125 MG in SODIUM CHLORIDE 0.9% 100 ML IV SCH (04:08)
[2023-06-21 04:36] LABS: HGB 14.7 gm/dL (11.4-16.0); MCH 34.3 pg (25.0-35.0); MCV 97.7 fL (80.0-100.0); Platelet Count 136 k/uL (150-450); RDW 11.7 % (11.5-15.5); WBC 6.8 k/uL (3.8-10.6)
[2023-06-21 04:50] LABS: African American GFR (CKD) >90 (>60 ml/min/1.73 sqM); Anion Gap 7 mmol/L; Blood Urea Nitrogen 16 mg/dL (7-17); Calcium 9.3 mg/dL (8.4-10.2); Carbon Dioxide 25 mmol/L (22-30); Chloride 108 mmol/L (98-107); Glucose 117 mg/dL (74-99); Non-African American GFR(CKD) >90 (>60 ml/min/1.73 sqM); Potassium 3.5 mmol/L (3.5-5.1); Sodium 140 mmol/L (137-145)
[2023-06-21] MEDS: POTASSIUM CHLORIDE ER 20 MEQ TAB.ER PO SCH ×2 (05:29→06:44)
[2023-06-21] MEDS ORDERED: Potassium Replacement Protocol 1 EACH MISC MISCELLANE PRN (07:02)
[2023-06-21] MEDS: HEPARIN SODIUM,PORCINE 5,000 UNIT/ML 1 ML VIAL SQ SCH ×2 (08:17→16:45)
[2023-06-21] MEDS ORDERED: DILTIAZEM CD 120 MG CAP.ER.24H PO SCH (09:15)
--- NOTE | 2023-06-21 09:38 | P.CRDCN ---
History of Present Illness Consult date: 06/21/23 Reason for Consult (text): Supraventricular tachycardia History of present illness: The patient is a 67-year-old female who follows in the office with Dr. Adam. She has had an irregular rhythm since her teenage years and has had documented "tachycardia." Symptoms started on Monday when she developed palpitations and elevated heart rate. She states with her beta td vagal maneuvers it would slow down and improve, but came back yesterday. [facility] where she scheduled an appointment. EKG in the office showed SVT with heart rate in the 190s. Dr. Adam performed carotid massage, with the patient converted to sinus rhythm with a heart rate in the low 100s. DIAGNOSTICS: EKG shows SVT, heart rate 196 Chest xray shows no acute cardiopulmonary process Lab data: WBC 6.8, hemoglobin 14.7, hematocrit 42.0, platelet 136, sodium 140, potassium 3.5, BUN 16, creatinine 0.58 PAST MEDICAL HISTORY: Breast cancer status post mastectomy, tachycardia/irregular heartbeat, dyslipidemia REVIEW OF SYSTEMS: No fever or chills. No cough or expectoration. No diaphoresis. Patient denies headache, dizziness, blurred vision, double vision. Patient denies any stomach discomfort. No nausea, vomiting. No hematochezia. No hematemesis. Denies any black stools or blood in his stools. Denies dysuria or hematuria. No muscle weakness or numbness. No chest pain or chest pressure. PHYSICAL EXAMINATION: This is a 67-year-old female in no apparent distress at the time of my examination. HEENT: Head is atraumatic, normocephalic. Pupils are equal, round. Sclerae anicteric. Conjunctivae are clear. Mucous membranes of the mouth are moist. Neck is supple. There is no jugular venous distention. No carotid bruit is heard. CHEST EXAMINATION: Lungs are clear to auscultation. No chest wall tenderness is noted on palpation or with deep breathing. HEART EXAMINATION: Heart regular rate and rhythm. S1, S2 heard. No murmurs, gall ops or rub. ABDOMEN: Soft, nontender. Bowel sounds are heard. No organomegaly noted. EXTREMITIES: 2+ peripheral pulses with no lower extremity edema and no calf tenderness noted. Lymphedema noted in left arm. NEUROLOGIC EXAMINATION: Patient is awake, alert and oriented x3. 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 Past Medical History Past Medical History: Cancer Additional Past Medical History / Comment(s): Tachycardia, was dx. since teenage years with tachycardia & irregular heart rate. History of Any Multi-Drug Resistant Organisms: None Reported Past Surgical History: Breast Surgery, Tubal Ligation Additional Past Surgical History / Comment(s): Double Mastectomy Past Anesthesia/Blood Transfusion Reactions: No Reported Reaction Past Psychological History: No Psychological Hx Reported Smoking Status: Never smoker Past Alcohol Use History: Rare Past Drug Use History: None Reported - Past Family History Mother Family Medical History: No Reported History Medications and Allergies Home Medications Medication Instructions Recorded Confirmed Type Ascorbic Acid [Vitamin C] 1 tab PO DAILY 12/27/16 06/20/23 History Glucosamine Sulfate 500 mg PO DAILY 12/27/16 06/20/23 History Multivitamins, Thera [Multivitamin] 1 tab PO DAILY 12/27/16 06/20/23 History Simvastatin [Zocor] 40 mg PO DAILY 12/27/16 06/20/23 History Calcium Carbonate/Vitamin D3 2 cap PO DAILY 04/28/22 06/20/23 History [Calcium 600 mg-D3 10 Mcg (400 Iu)] [place]-3 Fatty Acids/Fish Oil 1 cap PO DAILY 04/28/22 06/20/23 History [[place]-3 Fish Oil 1,200 mg Sfgl] Quercetin 500 mg PO DAILY 04/28/22 06/20/23 History Raloxifene [Evista] 60 mg PO DAILY 04/28/22 06/20/23 History Zinc 50 mg PO DAILY 04/28/22 06/20/23 History Metoprolol Succinate (ER) [Toprol 12.5 mg PO DAILY 06/23/22 06/20/23 History Xl] Aspirin EC [Ecotrin Low Dose] 81 mg PO DAILY 06/20/23 06/20/23 History Loratadine [Claritin] 10 mg PO DAILY PRN 06/20/23 06/20/23 History Allergies Allergy/AdvReac Type Severity Reaction Status Date / Time Penicillins Allergy Unknown Verified 06/20/23 18:37 Childhood tetracycline Allergy Unknown Verified 06/20/23 18:37 Physical Exam Vitals: Vital Signs Temp Pulse Pulse Resp BP Pulse Ox 06/21/23 08:15 77 14 96 06/21/23 08:00 97.8 F 76 15 146/67 93 L 06/21/23 07:45 79 19 131/74 92 L 06/21/23 07:30 85 15 94 L 06/21/23 07:15 89 12 129/74 94 L 06/21/23 07:00 89 21 106/61 93 L 06/21/23 06:50 88 12 106/61 96 06/21/23 06:40 75 14 106/61 89 L 06/21/23 06:30 70 14 114/67 88 L 06/21/23 06:20 71 13 114/67 88 L 06/21/23 06:10 68 15 114/67 92 L 06/21/23 06:00 67 15 106/67 93 L 06/21/23 05:50 72 16 106/67 92 L 06/21/23 05:40 86 22 106/67 96 06/21/23 05:30 83 38 H 111/63 93 L 06/21/23 05:20 68 13 111/63 91 L 06/21/23 05:10 72 14 111/63 89 L 06/21/23 05:00 70 17 119/65 92 L 06/21/23 04:50 64 15 119/65 91 L 06/21/23 04:40 65 14 119/65 92 L 06/21/23 04:30 73 14 103/55 92 L 06/21/23 04:20 78 17 103/55 93 L 06/21/23 04:10 82 9 L 103/55 94 L 06/21/23 04:00 98.7 F 76 68 14 120/73 92 L 06/21/23 03:50 89 26 H 120/73 94 L 06/21/23 03:40 71 16 120/73 91 L 06/21/23 03:30 76 15 120/75 89 L 06/21/23 03:20 72 19 120/75 94 L 06/21/23 03:10 74 15 120/75 91 L 06/21/23 03:00 76 17 100/60 91 L 06/21/23 02:50 72 18 100/60 93 L 06/21/23 02:40 76 16 100/60 94 L 06/21/23 02:30 68 18 115/72 90 L 06/21/23 02:20 72 8 L 115/72 94 L 06/21/23 02:10 82 10 L 115/72 93 L 06/21/23 02:00 74 16 99/54 90 L 06/21/23 01:50 73 14 99/54 89 L 06/21/23 01:40 85 8 L 99/54 91 L 06/21/23 01:30 69 14 108/76 89 L 06/21/23 01:20 72 14 108/76 92 L 06/21/23 01:10 74 15 108/76 93 L 06/21/23 01:00 77 13 121/75 92 L 06/21/23 00:50 77 16 121/75 91 L 06/21/23 00:40 73 14 121/75 96 06/21/23 00:30 77 14 136/70 94 L 06/21/23 00:26 76 16 136/70 94 L 06/21/23 00:20 79 16 136/70 95 06/21/23 00:10 76 15 136/70 94 L 06/21/23 00:00 97.9 F 88 81 15 115/78 97 06/20/23 23:50 70 11 L 115/78 92 L 06/20/23 23:40 84 12 115/78 95 06/20/23 23:30 76 14 134/80 96 06/20/23 23:20 76 18 134/80 91 L 06/20/23 23:10 68 8 L 134/80 96 06/20/23 23:00 93 16 138/78 95 06/20/23 22:50 80 18 138/78 94 L 06/20/23 22:40 85 17 138/78 93 L 06/20/23 22:30 87 8 L 151/94 95 06/20/23 22:20 95 7 L 151/94 96 06/20/23 22:10 90 10 L 151/94 95 06/20/23 22:00 94 21 149/102 95 06/20/23 21:50 99 12 149/102 96 06/20/23 21:40 92 8 L 149/102 96 06/20/23 21:30 102 H 40 H 144/90 94 L 06/20/23 21:20 89 12 144/90 91 L 06/20/23 21:10 90 10 L 144/90 92 L 06/20/23 21:00 98.2 F 90 15 138/85 94 L 06/20/23 20:50 184 H 10 L 138/85 96 06/20/23 20:40 90 11 L 138/85 97 06/20/23 20:30 99 184 H 23 156/114 95 06/20/23 20:20 192 H 10 L 06/20/23 20:00 101 H 20 159/81 98 06/20/23 19:18 122 H 18 147/105 94 L 06/20/23 18:39 88 16 156/114 97 06/20/23 18:30 149 H 16 163/125 97 06/20/23 18:21 105 H 190 H 18 164/115 95 06/20/23 17:45 98.0 F 116 H 18 165/106 97 Intake and Output 06/20/23 06/21/23 06/21/23 22:59 06:59 14:59 Intake Total 40 255.667 50 Output Total 700 0 Balance 40 -444.333 50 Intake: IV 40 160 50 Diltiazem 125 mg In 10 Sodium Chloride 0.9% 100 ml @ 10 MG/HR 10 mls/hr IV .[id number] [facility] Rx#: [id number] Sodium Chloride 0.9% 1, 40 160 40 000 ml @ 20 mls/hr IV . Q24H [facility] Rx#:[id number] Intake, IV Titration 95.667 Amount Diltiazem 125 mg In 95.667 Sodium Chloride 0.9% 100 ml @ 10 MG/HR 10 mls/hr IV .[id number] [facility] Rx#: [id number] Output: Urine 700 0 Other: Voiding Method External Catheter External Catheter External Catheter # Voids 0 Weight 83.915 kg 88.9 kg Results 06/21/23 04:11 06/21/23 04:11 Cardiac Enzymes 06/20/23 Range/Units 18:20 AST 30 (14-36) U/L CBC 06/20/23 06/21/23 Range/Units 18:20 04:11 WBC 7.0 6.8 (3.8-10.6) k/uL RBC 4.51 4.30 (3.80-5.40) m/uL Hgb 15.4 14.7 (11.4-16.0) gm/dL Hct 43.9 42.0 (34.0-46.0) % Plt Count 165 136 L (150-450) k/uL Comprehensive Metabolic Panel 06/20/23 06/21/23 Range/Units 18:20 04:11 Sodium 139 140 (137-145) mmol/L Potassium 4.1 3.5 (3.5-5.1) mmol/L Chloride 107 108 H (98-107) mmol/L Carbon Dioxide 20 L 25 (22-30) mmol/L BUN 20 H 16 (7-17) mg/dL Creatinine 0.61 0.58 (0.52-1.04) mg/dL Glucose 107 H 117 H (74-99) mg/dL Calcium 10.6 H 9.3 (8.4-10.2) mg/dL AST 30 (14-36) U/L ALT 32 (4-34) U/L Alkaline Phosphatase 96 (38-126) U/L Total Protein 7.0 (6.3-8.2) g/dL Albumin 4.0 (3.5-5.0) g/dL Current Medications Generic Name Dose Route Start Last Admin Trade Name Freq PRN Reason Stop Dose Admin Heparin Sodium (Porcine) 5,000 unit 06/21/23 08:00 06/21/23 08:17 Heparin Sodium,Porcine 5,000 Unit/Ml 1 Ml Vial SQ 5,000 unit Q8HR [facility] Administration Diltiazem HCl 125 mg/ Sodium 125 mls @ 10 mls/hr 06/20/23 18:15 06/21/23 04:08 Chloride IV 10 mg/hr .[id number] [facility] 10 mls/hr Administration 10 MG/HR Sodium Chloride 1,000 mls @ 20 mls/hr 06/20/23 19:45 06/20/23 19:53 Saline 0.9% IV 20 mls/hr .Q24H [facility] Administration Miscellaneous Information 1 each 06/21/23 07:02 Potassium Replacement Protocol 1 Each Misc MISCELLANE DAILY PRN Per Protocol Protocol Naloxone HCl 0.2 mg 06/20/23 19:34 Naloxone 0.4 Mg/Ml 1 Ml Vial IV Q2M PRN Opioid Reversal Intake and Output 06/20/23 06/21/23 06/21/23 22:59 06:59 14:59 Intake Total 40 255.667 50 Output Total 700 0 Balance 40 -444.333 50 Intake: IV 40 160 50 Diltiazem 125 mg In 10 Sodium Chloride 0.9% 100 ml @ 10 MG/HR 10 mls/hr IV .[id number] [facility] Rx#: [id number] Sodium Chloride 0.9% 1, 40 160 40 000 ml @ 20 mls/hr IV . Q24H [facility] Rx#:[id number] Intake, IV Titration 95.667 Amount Diltiazem 125 mg In 95.667 Sodium Chloride 0.9% 100 ml @ 10 MG/HR 10 mls/hr IV .[id number] [facility] Rx#: [id number] Output: Urine 700 0 Other: Voiding Method External Catheter External Catheter External Catheter # Voids 0 Weight 83.915 kg 88.9 kg 06/21/23 04:11 06/21/23 04:11
[2023-06-21] MEDS: DILTIAZEM CD 180 MG CAP.ER.24H PO SCH (10:00)
[2023-06-21 10:23] LABS: Potassium 3.9 mmol/L (3.5-5.1)
[2023-06-21] MEDS: ATORVASTATIN 20 MG TAB PO SCH (12:07)
[2023-06-21] MEDS: RALOXIFENE 60 MG TAB PO SCH (12:07)
[2023-06-21] MEDS: MULTIVITAMINS, THERA 1 EACH TAB PO SCH (12:07)
[2023-06-21] MEDS: ASCORBIC ACID 500 MG TAB PO SCH (12:07)
--- NOTE | 2023-06-21 17:25 | P.HPIM ---
History of Present Illness H&P Date: 06/21/23 Chief Complaint: Heart racing This is a pleasant 67-year-old patient who follows with Dr. Burnett. 2 days ago patient started experiencing heart racing. Some associated disease and ascending lightheadedness. Symptoms did not let down. She does follow with dining services director Dr. Adam. She's had irregular heartbeat since her teenage years. And has been documented this tachycardia. She has been experiencing palpitations. He normally would use a beta td and vagal maneuvers and normally with slowing down. She came in to see Dr. Adam in the office and EKG showed SVT with a rate in the 190s. Scattered a carotid massage and the patient tolerated to sinus rhythm. Because of recurrent episodes she is brought into the ER and admitted to ICU. Initially started on IV Cardizem drip and switched over to oral Cardizem. Review of systems: GEN.: None EYES: None HEENT: None NECK: None RESPIRATORY: None CARDIOVASCULAR: As above GASTROINTESTINAL: None GENITOURINARY: None MUSCULOSKELETAL: Arthritis LYMPHATICS: None HEMATOLOGICAL: None PSYCHIATRY: None NEUROLOGICAL: None. Past medical history to include: Hyperlipidemia, osteoarthritis, left breast cancer with bilateral mastectomy with resulting left arm lymphedema Social history: . Does not smoke or drink alcohol Physical examination: VITAL SIGNS: 98, up to 190, 18, 163/120, 97% room air upon presentation GENERAL: BMI 33.6, sitting of a chair awake comfortable. EYES: Pupils equal. Conjunctiva normal. HEENT: External appearance of nose and ears normal, oral cavity grossly normal. NECK: JVD not raised; masses not palpable. HEART: First and second heart sounds are normal; no edema. LUNGS: Respiratory rate normal; clear to auscultation. ABDOMEN: Soft, nontender, liver spleen not palpable, no masses palpable. PSYCH: Alert and oriented x3; mood and affect normal. MUSCULOSKELETAL:No Clubbing/cyanosis;muscles-grossly intact. Oriented. Lymphedema of the left arm NEUROLOGICAL: Cranial nerves grossly intact; no facial asymmetry, power and sensation grossly intact. LYMPHATICS: No lymph nodes palpable in the axilla and neck INVESTIGATIONS, reviewed in the clinical context: White count 7 hemoglobin 15.4 platelets 165 potassium 4.1 BUN 20 creatinine 0.61 TSH 1.8 EKG tracing personally reviewed by -SHERRYT. Grade 196. Some ST segment changes. Chest x-ray film personally reviewed by me-cardiomegaly. Assessment and plan: -Recurrent SVT with heart rate up to 190s. Patient's had symptoms since her childhood. Now symptomatic. Did have some relief with vagal maneuvers and beta blockers in the past. Initially put on IV Cardizem drip now started on oral Cardizem. Plan for outpatient EP study by Dr. Rea -Obesity BMI 33.6 Weight loss measures -Hyperlipidemia Zocor 40 mg daily -Primary osteoarthritis Tylenol as needed -Chronic left arm lymphedema following mastectomy for breast cancer Asymptomatic. -Full code Care was discussed with patient. Questions answered. Past Medical History Past Medical History: Cancer Additional Past Medical History / Comment(s): Tachycardia, was dx. since teenage years with tachycardia & irregular heart rate. History of Any Multi-Drug Resistant Organisms: None Reported Past Surgical History: Breast Surgery, Tubal Ligation Additional Past Surgical History / Comment(s): Double Mastectomy Past Anesthesia/Blood Transfusion Reactions: No Reported Reaction Past Psychological History: No Psychological Hx Reported Smoking Status: Never smoker Past Alcohol Use History: Rare Past Drug Use History: None Reported - Past Family History Mother Family Medical History: No Reported History Medications and Allergies Home Medications Medication Instructions Recorded Confirmed Type Ascorbic Acid [Vitamin C] 1 tab PO DAILY 12/27/16 06/20/23 History Glucosamine Sulfate 500 mg PO DAILY 12/27/16 06/20/23 History Multivitamins, Thera [Multivitamin] 1 tab PO DAILY 12/27/16 06/20/23 History Simvastatin [Zocor] 40 mg PO DAILY 12/27/16 06/20/23 History Calcium Carbonate/Vitamin D3 2 cap PO DAILY 04/28/22 06/20/23 History [Calcium 600 mg-D3 10 Mcg (400 Iu)] [place]-3 Fatty Acids/Fish Oil 1 cap PO DAILY 04/28/22 06/20/23 History [[place]-3 Fish Oil 1,200 mg Sfgl] Quercetin 500 mg PO DAILY 04/28/22 06/20/23 History Raloxifene [Evista] 60 mg PO DAILY 04/28/22 06/20/23 History Zinc 50 mg PO DAILY 04/28/22 06/20/23 History Metoprolol Succinate (ER) [Toprol 12.5 mg PO DAILY 06/23/22 06/20/23 History Xl] Aspirin EC [Ecotrin Low Dose] 81 mg PO DAILY 06/20/23 06/20/23 History Loratadine [Claritin] 10 mg PO DAILY PRN 06/20/23 06/20/23 History Allergies Allergy/AdvReac Type Severity Reaction Status Date / Time Penicillins Allergy Unknown Verified 06/20/23 18:37 Childhood tetracycline Allergy Unknown Verified 06/20/23 18:37 Physical Exam Vitals: Vital Signs Temp Pulse Pulse Resp BP Pulse Ox 06/21/23 10:00 75 14 126/70 96 06/21/23 09:30 77 19 123/66 92 L 06/21/23 09:00 75 12 121/68 95 06/21/23 08:30 86 19 146/67 92 L 06/21/23 08:15 77 14 96 06/21/23 08:00 97.8 F 76 15 146/67 93 L 06/21/23 07:45 79 19 131/74 92 L 06/21/23 07:30 85 15 94 L 06/21/23 07:15 89 12 129/74 94 L 06/21/23 07:00 89 21 106/61 93 L 06/21/23 06:50 88 12 106/61 96 06/21/23 06:40 75 14 106/61 89 L 06/21/23 06:30 70 14 114/67 88 L 06/21/23 06:20 71 13 114/67 88 L 06/21/23 06:10 68 15 114/67 92 L 06/21/23 06:00 67 15 106/67 93 L 06/21/23 05:50 72 16 106/67 92 L 06/21/23 05:40 86 22 106/67 96 06/21/23 05:30 83 38 H 111/63 93 L 06/21/23 05:20 68 13 111/63 91 L 06/21/23 05:10 72 14 111/63 89 L 06/21/23 05:00 70 17 119/65 92 L 06/21/23 04:50 64 15 119/65 91 L 06/21/23 04:40 65 14 119/65 92 L 06/21/23 04:30 73 14 103/55 92 L 06/21/23 04:20 78 17 103/55 93 L 06/21/23 04:10 82 9 L 103/55 94 L 06/21/23 04:00 98.7 F 76 68 14 120/73 92 L 06/21/23 03:50 89 26 H 120/73 94 L 06/21/23 03:40 71 16 120/73 91 L 06/21/23 03:30 76 15 120/75 89 L 06/21/23 03:20 72 19 120/75 94 L 06/21/23 03:10 74 15 120/75 91 L 06/21/23 03:00 76 17 100/60 91 L 06/21/23 02:50 72 18 100/60 93 L 06/21/23 02:40 76 16 100/60 94 L 06/21/23 02:30 68 18 115/72 90 L 06/21/23 02:20 72 8 L 115/72 94 L 06/21/23 02:10 82 10 L 115/72 93 L 06/21/23 02:00 74 16 99/54 90 L 06/21/23 01:50 73 14 99/54 89 L 06/21/23 01:40 85 8 L 99/54 91 L 06/21/23 01:30 69 14 108/76 89 L 06/21/23 01:20 72 14 108/76 92 L 06/21/23 01:10 74 15 108/76 93 L 06/21/23 01:00 77 13 121/75 92 L 06/21/23 00:50 77 16 121/75 91 L 06/21/23 00:40 73 14 121/75 96 06/21/23 00:30 77 14 136/70 94 L 06/21/23 00:26 76 16 136/70 94 L 06/21/23 00:20 79 16 136/70 95 06/21/23 00:10 76 15 136/70 94 L 06/21/23 00:00 97.9 F 88 81 15 115/78 97 06/20/23 23:50 70 11 L 115/78 92 L 06/20/23 23:40 84 12 115/78 95 06/20/23 23:30 76 14 134/80 96 06/20/23 23:20 76 18 134/80 91 L 06/20/23 23:10 68 8 L 134/80 96 06/20/23 23:00 93 16 138/78 95 06/20/23 22:50 80 18 138/78 94 L 06/20/23 22:40 85 17 138/78 93 L 06/20/23 22:30 87 8 L 151/94 95 06/20/23 22:20 95 7 L 151/94 96 06/20/23 22:10 90 10 L 151/94 95 06/20/23 22:00 94 21 149/102 95 06/20/23 21:50 99 12 149/102 96 06/20/23 21:40 92 8 L 149/102 96 06/20/23 21:30 102 H 40 H 144/90 94 L 06/20/23 21:20 89 12 144/90 91 L 06/20/23 21:10 90 10 L 144/90 92 L 06/20/23 21:00 98.2 F 90 15 138/85 94 L 06/20/23 20:50 184 H 10 L 138/85 96 06/20/23 20:40 90 11 L 138/85 97 06/20/23 20:30 99 184 H 23 156/114 95 06/20/23 20:20 192 H 10 L 06/20/23 20:00 101 H 20 159/81 98 06/20/23 19:18 122 H 18 147/105 94 L 06/20/23 18:39 88 16 156/114 97 06/20/23 18:30 149 H 16 163/125 97 06/20/23 18:21 105 H 190 H 18 164/115 95 06/20/23 17:45 98.0 F 116 H 18 165/106 97 Intake and Output 06/20/23 06/21/23 06/21/23 22:59 06:59 14:59 Intake Total 40 255.667 166.417 Output Total 700 0 Balance 40 -444.333 166.417 Intake: IV 40 160 105 Diltiazem 125 mg In 25 Sodium Chloride 0.9% 100 ml @ 10 MG/HR 10 mls/hr IV .[id number] [facility] Rx#: [id number] Sodium Chloride 0.9% 1, 40 160 80 000 ml @ 20 mls/hr IV . Q24H [facility] Rx#:[id number] Intake, IV Titration 95.667 61.417 Amount Diltiazem 125 mg In 95.667 61.417 Sodium Chloride 0.9% 100 ml @ 10 MG/HR 10 mls/hr IV .[id number] [facility] Rx#: [id number] Output: Urine 700 0 Other: Voiding Method External Catheter External Catheter External Catheter # Voids 0 Weight 83.915 kg 88.9 kg Results CBC & Chem 7: 06/21/23 04:11 06/21/23 09:50 Labs: Abnormal Lab Results - Last 24 Hours (Table) 06/20/23 06/20/23 06/21/23 Range/Units 18:20 20:20 04:11 Plt Count (150-450) k/uL Chloride 108 H (98-107) mmol/L Carbon Dioxide 20 L (22-30) mmol/L BUN 20 H (7-17) mg/dL Glucose 107 H 117 H (74-99) mg/dL POC Glucose (mg/dL) 116 H (70-110) mg/dL Calcium 10.6 H (8.4-10.2) mg/dL 06/21/23 Range/Units 04:11 Plt Count 136 L (150-450) k/uL Chloride (98-107) mmol/L Carbon Dioxide (22-30) mmol/L BUN (7-17) mg/dL Glucose (74-99) mg/dL POC Glucose (mg/dL) (70-110) mg/dL Calcium (8.4-10.2) mg/dL Thrombosis Risk Factor Assmnt - Choose All That Apply Each Factor Represents 1 point: Obesity (BMI >25) Each Risk Factor Represents 2 Points: Age 61-74 years Thrombosis Risk Factor Assessment Total Risk Factor Score: 3 Thrombosis Risk Factor Assessment Level: Moderate Risk
[2023-06-21] MEDS: SODIUM CHLORIDE 0.9% 1,000 ML IV SCH (19:37)
[2023-06-22] MEDS: HEPARIN SODIUM,PORCINE 5,000 UNIT/ML 1 ML VIAL SQ SCH ×4 (00:10→23:12)
--- NOTE | 2023-06-22 07:35 | P.PN ---
Progress Note - Text 67-year-old female with recurrent symptomatic SVT that is drug refractory. She failed beta blockers On IV Cardizem and on by mouth Cardizem she had a short breakthrough episode of narrow complex SVT Twelve-lead EKG shows short RP tachycardia with a RP interval is greater than 100 ms Plan would recommend elective outpatient EP study and SVT ablation
[2023-06-22] MEDS: RALOXIFENE 60 MG TAB PO SCH (08:06)
[2023-06-22] MEDS: MULTIVITAMINS, THERA 1 EACH TAB PO SCH (08:06)
[2023-06-22] MEDS: ATORVASTATIN 20 MG TAB PO SCH (08:06)
[2023-06-22] MEDS: DILTIAZEM CD 180 MG CAP.ER.24H PO SCH (08:07)
[2023-06-22] MEDS: ASCORBIC ACID 500 MG TAB PO SCH (08:07)
[2023-06-22 08:24] LABS: Glucose,Whole Blood 170 mg/dL (70-110)
[2023-06-22] MEDS ORDERED: ADENOSINE 3 MG/ML 2 ML VIAL IVP ONE (12:25)
--- NOTE | 2023-06-22 13:22 | P.PN ---
Subjective Progress Note Date: 06/22/23 Principal diagnosis: Supraventricular tachycardia I am seeing this patient in new consultation today 07/01/2023 in the intensive care unit after she was directed to the emergency room from her straightening press operator helper's office for persistent SVT. Patient is a 67-year-old white female with past medical history significant for tachyarrhythmias, which she's had since she was a teenager, hyperlipidemia, and breast cancer status post double mastectomy. Patient started to experience heart palpitations and lightheadedness two nights ago, and scheduled an appointment with her straightening press operator helper Dr. Adam yesterday. While at the office, the patient was found to be tachycardic around 180 bpm. Va gal maneuvers were attempted, but the patient's tachycardia was persistent, and she was directed to the emergency room. On arrival, ECG shows SVT, and the patient was started on Cardizem infusion. Per the patient, there may be plans for ablation in the future. Patient is currently sitting up in bed, on room air, in no acute distress. She denies any chest pain, current heart palpitations, lightheadedness, syncope, or lower extremity swelling. Cardizem is currently infusing at 10 mg per hour. Heart rate appears well controlled in the 70s. Bedside monitor shows normal sinus rhythm with frequent PACs. Blood pressure is normotensive. CBC and BMP on arrival were unremarkable. Normal saline is infusing at 20 ML's per hour. Left arm is edematous, this is chronic and due to her history of mastectomy. Patient appears to be doing better, and will be monitored in the intensive care unit overnight. Patient was reevaluated today on 06/22/2023, doing well, relatively asymptomatic, she was told by cardiology that she may be discharged home today. Pulmonary- sanon no cough no wheezing no shortness of breath, no chest pain, and I believe from the pulmonary perspective the patient could be considered for discharge however she needs to be fully cleared by cardiology Objective - Vital Signs Vital signs: Vital Signs Temp 98.0 F 06/22/23 11:52 Pulse 94 06/22/23 11:52 Resp 18 06/22/23 11:52 BP 119/71 06/22/23 11:52 Pulse Ox 95 06/22/23 11:52 FiO2 Intake & Output 06/21/23 06/22/23 06/22/23 18:59 06:59 18:59 Intake Total 166.417 128 Output Total 0 Balance 166.417 128 Intake: IV 105 10 Diltiazem 125 mg In 25 Sodium Chloride 0.9% 100 ml @ 10 MG/HR 10 mls/hr IV .[id number] [facility] Rx#: [id number] Invasive Line 1 10 Sodium Chloride 0.9% 1, 80 000 ml @ 20 mls/hr IV . Q24H [facility] Rx#:[id number] Intake, IV Titration 61.417 Amount Diltiazem 125 mg In 61.417 Sodium Chloride 0.9% 100 ml @ 10 MG/HR 10 mls/hr IV .[id number] [facility] Rx#: [id number] Oral 118 Output: Urine 0 Other: Voiding Method External Catheter Toilet Toilet # Voids 3 2 - Exam Physical Exam: Revealed a 67-year-old female in no distress Head: Atraumatic, normocephalic. HEENT:[Neck is supple.] [No neck masses.] [No thyromegaly.] [No JVD.] Chest: [Clear throughout, no crackles, no rhonchi, no wheezes.] Cardiac Exam: [Normal S1 and S2, no S3 gallop, no murmur.] Abdomen: [Soft, nontender, no megaly, no rebound, no guarding, normal bowel sounds.] Extremities: [No clubbing, no edema, no cyanosis.] Neurological Exam: [No focal neurologic deficit.] Alert and oriented 3 Psychiatric: Normal mood affect and normal mental status examination. Skin: No rashes. - Labs CBC & Chem 7: 06/21/23 04:11 06/21/23 09:50 Labs: Abnormal Lab Results - Last 24 Hours (Table) 06/22/23 Range/Units 08:22 POC Glucose (mg/dL) 170 H (70-110) mg/dL Assessment and Plan Assessment: Impression: Paroxysmal supraventricular tachycardia Dyslipidemia History of breast cancer and previous double mastectomy Left arm lymphedema Recommendation: Continue present treatment plan as per cardiology Has to be cleared by cardiology before discharge home We will sign off and follow the patient as needed Time with Patient: Less than 30
[2023-06-22] MEDS ORDERED: METOPROLOL TARTRATE 25 MG TAB PO STA ×2 (13:24→13:28)
[2023-06-22] MEDS ORDERED: DILTIAZEM CD 120 MG CAP.ER.24H PO STA (13:24)
--- NOTE | 2023-06-22 14:15 | P.PN ---
Subjective HISTORY OF PRESENT ILLNESS: The patient is a 67-year-old female who follows in the office with Dr. Adam. She has had an irregular rhythm since her teenage years and has had documented "tachycardia." Symptoms started on Monday when she developed palpitations and elevated heart rate. She states with her beta td vagal maneuvers it would slow down and improve, but came back yesterday. [facility] where she scheduled an appointment. EKG in the office showed SVT with heart rate in the 190s. Dr. Adam performed carotid massage, with the patient converted to sinus rhythm with a heart rate in the low 100s. DIAGNOSTICS: EKG shows SVT, heart rate 196 Chest xray shows no acute cardiopulmonary process Lab data: WBC 6.8, hemoglobin 14.7, hematocrit 42.0, platelet 136, sodium 140, potassium 3.5, BUN 16, creatinine 0.58 06/22/2023 Patient examined this morning at the bedside. Patient denies chest pain or pressure. Denies SOB. No further episodes overnight of SVT. Patient did have an episode of SVT this afternoon with conversion to sinus mechanism after 6mg of adenosine. However patient continues to have bursts of SVT. PHYSICAL EXAM: VITAL SIGNS: Reviewed. GENERAL: Well-developed in no acute distress. NECK: Supple. No JVD or thyromegaly LUNGS: Respirations even and unlabored. Lungs essentially clear to auscultation bilaterally. HEART: Regular rate and rhythm. S1 and S2 heard. EXTREMITIES: Normal range of motion. No clubbing or cyanosis. Peripheral pulses intact. No lower extremity edema ASSESSMENT: Paroxysmal SVT Hyperlipidemia History of breast cancer PLAN: Patient has failed beta blockers previously. However, will give one dose of metoprolol 25mg now and monitor response. Increase Cardizem to 240mg daily Give additional dose of 120mg now Patient will need elective outpatient EP study and SVT ablation Continue telemetry monitoring Continue to monitor patient for another 24 hours Further recommendations pending patient's course Nurse practitioner note has been reviewed by physician. Signing provider agrees with the documented findings, assessment, and plan of care. Objective - Vital Signs Vital signs: Vital Signs Temp 98.0 F 06/22/23 11:52 Pulse 94 06/22/23 11:52 Resp 18 06/22/23 11:52 BP 119/71 06/22/23 11:52 Pulse Ox 95 06/22/23 11:52 FiO2 Intake & Output 06/21/23 06/22/23 06/22/23 18:59 06:59 18:59 Intake Total 166.417 368 Output Total 0 Balance 166.417 368 Intake: IV 105 10 Diltiazem 125 mg In 25 Sodium Chloride 0.9% 100 ml @ 10 MG/HR 10 mls/hr IV .[id number] [facility] Rx#: [id number] Invasive Line 1 10 Sodium Chloride 0.9% 1, 80 000 ml @ 20 mls/hr IV . Q24H [facility] Rx#:[id number] Intake, IV Titration 61.417 Amount Diltiazem 125 mg In 61.417 Sodium Chloride 0.9% 100 ml @ 10 MG/HR 10 mls/hr IV .[id number] [facility] Rx#: [id number] Oral 358 Output: Urine 0 Other: Voiding Method External Catheter Toilet Toilet # Voids 3 2 - Labs CBC & Chem 7: 06/21/23 04:11 06/21/23 09:50 Labs: Abnormal Lab Results - Last 24 Hours (Table) 06/22/23 Range/Units 08:22 POC Glucose (mg/dL) 170 H (70-110) mg/dL
[2023-06-22] MEDS ORDERED: DIGOXIN 250 MCG/ML 2 ML AMP IVP ONE (15:00)
--- NOTE | 2023-06-22 18:34 | P.PN ---
Progress Note - Text Progress Note Date: 06/22/23 Chief Complaint: Heart racing This is a pleasant 67-year-old patient who follows with Dr. Burnett. 2 days ago patient started experiencing heart racing. Some associated disease and ascending lightheadedness. Symptoms did not let down. She does follow with aircraft mechanic armament Dr. Adam. She's had irregular heartbeat since her teenage years. And has been documented this tachycardia. She has been experiencing palpitations. He normally would use a beta td and vagal maneuvers and normally with slowing down. She came in to see Dr. Adam in the office and EKG showed SVT with a rate in the 190s. Scattered a carotid massage and the patient tolerated to sinus rhythm. Because of recurrent episodes she is brought into the ER and admitted to ICU. Initially started on IV Cardizem drip and switched over to oral Cardizem. 06/22/2023: Patient this afternoon and another episode of SVT. Had to be given adenosine. Patient's Cardizem has been further change to long-acting. Digoxin was added. Dr. Angel Bocanegra will follow the patient and hold the patient tonight for further observation. Patient to ambulate as tolerated. Discussed. Active Medications Ascorbic Acid (Ascorbic Acid 500 Mg Tab) 500 mg PO DAILY [facility] Last Admin: 06/22/23 08:07 Dose: 500 mg Atorvastatin Calcium (Atorvastatin 20 Mg Tab) 20 mg PO DAILY [facility] Last Admin: 06/22/23 08:06 Dose: 20 mg Digoxin (Digoxin 125 Mcg Tab) 125 mcg PO DAILY [facility] Diltiazem HCl (Diltiazem Cd 180 Mg Cap.Er.24h) 360 mg PO DAILY [facility] Heparin Sodium (Porcine) (Heparin Sodium,Porcine 5,000 Unit/Ml 1 Ml Vial) 5,000 unit SQ Q8HR [facility] Last Admin: 06/22/23 17:33 Dose: 5,000 unit Sodium Chloride (Saline 0.9%) 1,000 mls @ 20 mls/hr IV .Q24H [facility] Last Admin: 06/21/23 19:37 Dose: Not Given Miscellaneous Information (Potassium Replacement Protocol 1 Each Misc) 1 each MISCELLANE DAILY PRN; Protocol PRN Reason: Per Protocol Multivitamins (Multivitamins, Thera 1 Each Tab) 1 each PO DAILY [facility] Last Admin: 06/22/23 08:06 Dose: 1 each Naloxone HCl (Naloxone 0.4 Mg/Ml 1 Ml Vial) 0.2 mg IV Q2M PRN PRN Reason: Opioid Reversal Raloxifene HCl (Raloxifene 60 Mg Tab) 60 mg PO DAILY [facility] Last Admin: 06/22/23 08:06 Dose: 60 mg Past medical history to include: Hyperlipidemia, osteoarthritis, left breast cancer with bilateral mastectomy with resulting left arm lymphedema Social history: . Does not smoke or drink alcohol Physical examination: VITAL SIGNS: 98, 94, 18, 119, 71, 95% room air GENERAL: BMI 33.6, reclining, comfortable EYES: Pupils equal. Conjunctiva normal. HEENT: External appearance of nose and ears normal, oral cavity grossly normal. NECK: JVD not raised; masses not palpable. HEART: First and second heart sounds are normal; no edema. LUNGS: Respiratory rate normal; clear to auscultation. ABDOMEN: Soft, nontender, liver spleen not palpable, no masses palpable. PSYCH: Alert and oriented x3; mood and affect normal. MUSCULOSKELETAL:No Clubbing/cyanosis;muscles-grossly intact. Oriented. Lymphedema of the left arm INVESTIGATIONS, reviewed in the clinical context: White count 7 hemoglobin 15.4 platelets 165 potassium 4.1 BUN 20 creatinine 0.61 TSH 1.8 EKG tracing personally reviewed by me-SVT. Grade 196. Some ST segment changes. Chest x-ray film personally reviewed by me-cardiomegaly. Assessment and plan: -Recurrent SVT with heart rate up to 190s. Patient's had symptoms since her childhood. Now symptomatic. Did have some relief with vagal maneuvers and beta blockers in the past. Initially put on IV Cardizem drip now started on oral Cardizem. On another episode today that received and now seen. Now on Cardizem CD 180 mg. Digoxin 125 g added Plan for outpatient EP study by Dr. Rea -Obesity BMI 33.6 Weight loss measures -Hyperlipidemia Zocor 40 mg daily -Primary osteoarthritis Tylenol as needed -Chronic left arm lymphedema following mastectomy for breast cancer Asymptomatic. -Full code
[2023-06-23] MEDS: SODIUM CHLORIDE 0.9% 1,000 ML IV SCH (05:00)
[2023-06-23] MEDS: HEPARIN SODIUM,PORCINE 5,000 UNIT/ML 1 ML VIAL SQ SCH ×2 (08:42→17:43)
[2023-06-23] MEDS: MULTIVITAMINS, THERA 1 EACH TAB PO SCH (08:42)
[2023-06-23] MEDS: ASCORBIC ACID 500 MG TAB PO SCH (08:42)
[2023-06-23] MEDS: ATORVASTATIN 20 MG TAB PO SCH (08:42)
[2023-06-23] MEDS: RALOXIFENE 60 MG TAB PO SCH (08:42)
[2023-06-23] MEDS ORDERED: DILTIAZEM CD 180 MG CAP.ER.24H PO SCH (09:00)
[2023-06-23] MEDS ORDERED: DILTIAZEM CD 240 MG CAP.ER.24H PO SCH (09:00)
[2023-06-23] MEDS ORDERED: DIGOXIN 125 MCG TAB PO SCH (09:00)
--- NOTE | 2023-06-23 10:55 | P.PN ---
Subjective Progress Note Date: 06/23/23 HISTORY OF PRESENT ILLNESS: The patient is a 67-year-old female who follows in the office with Dr. Adam. She has had an irregular rhythm since her teenage years and has had documented "tachycardia." Symptoms started on Monday when she developed palpitations and elevated heart rate. She states with her beta td vagal maneuvers it would slow down and improve, but came back yesterday. [facility], where she scheduled an appointment. EKG in the office showed SVT with heart rate in the 190s. Dr. Adam performed carotid massage, with the patient converted to sinus rhythm with a heart rate in the low 100s. DIAGNOSTICS: EKG shows SVT, heart rate 196 Chest xray shows no acute cardiopulmonary process Lab data: WBC 6.8, hemoglobin 14.7, hematocrit 42.0, platelet 136, sodium 140, potassium 3.5, BUN 16, creatinine 0.58 06/22/2023 Patient examined this morning at the bedside. Patient denies chest pain or pressure. Denies SOB. No further episodes overnight of SVT. Patient did have an episode of SVT this afternoon with conversion to sinus mechanism after 6mg of adenosine. However patient continues to have bursts of SVT. 06/23/2023 Patient examined this morning at the bedside. Patient has had no further episodes of SVT. Patient's Cardizem has been increased to 360 mg daily. She did receive a dose of IV Digoxin yesterday. she currently denies chest pain or pressure. Denies shortness of breath. Denies dizziness or lightheadedness. Vital signs are stable. PHYSICAL EXAM: VITAL SIGNS: Reviewed. GENERAL: Well-developed in no acute distress. NECK: Supple. No JVD or thyromegaly LUNGS: Respirations even and unlabored. Lungs essentially clear to auscultation bilaterally. HEART: Regular rate and rhythm. S1 and S2 heard. EXTREMITIES: Normal range of motion. No clubbing or cyanosis. Peripheral pulses intact. No lower extremity edema ASSESSMENT: Paroxysmal SVT Hyperlipidemia History of breast cancer PLAN: Patient to receive 360 mg of Cardizem this morning. After her morning dose, this medication will be placed on hold. There is a possibility the patient will undergo EP study and SVT ablation on 06/26/2023. Dr. Rea will know more about scheduling and will make a decision tomorrow regarding if patient will undergo procedure on Monday If she undergoes EP study on Monday, will switch patient to IV Cardizem starting tomorrow. If patient is unable to have EP study performed on Monday, this will be scheduled in the next 2-3 weeks and patients oral Cardizem may be resumed. Further recommendations pending patient's course Nurse practitioner note has been reviewed by physician. Signing provider agrees with the documented findings, assessment, and plan of care. Objective - Vital Signs Vital signs: Vital Signs Temp 97.9 F 06/23/23 08:35 Pulse 81 06/23/23 08:35 Resp 18 06/23/23 08:35 BP 114/69 06/23/23 08:35 Pulse Ox 94 L 06/23/23 08:35 FiO2 Intake & Output 06/22/23 06/23/23 06/23/23 18:59 06:59 18:59 Intake Total 604 240 Balance 604 240 Intake: IV 10 Invasive Line 1 10 Oral 594 240 Other: Voiding Method Toilet Toilet Toilet # Voids 2 - Labs CBC & Chem 7: 06/21/23 04:11 06/21/23 09:50
--- NOTE | 2023-06-23 17:28 | P.PN ---
Progress Note - Text Progress Note Date: 06/23/23 Chief Complaint: Heart racing This is a pleasant 67-year-old patient who follows with Dr. Burnett. 2 days ago patient started experiencing heart racing. Some associated disease and ascending lightheadedness. Symptoms did not let down. She does follow with impregnator and drier helper Dr. Adam. She's had irregular heartbeat since her teenage years. And has been documented this tachycardia. She has been experiencing palpitations. He normally would use a beta td and vagal maneuvers and normally with slowing down. She came in to see Dr. Adam in the office and EKG showed SVT with a rate in the 190s. Scattered a carotid massage and the patient tolerated to sinus rhythm. Because of recurrent episodes she is brought into the ER and admitted to ICU. Initially started on IV Cardizem drip and switched over to oral Cardizem. 06/22/2023: Patient this afternoon and another episode of SVT. Had to be given adenosine. Patient's Cardizem has been further change to long-acting. Digoxin was added. Dr. Angel Bocanegra will follow the patient and hold the patient tonight for further observation. Patient to ambulate as tolerated. Discussed. 06/23/2023: Dr. Angel Bocanegra decided to keep the patient over the weekend. Plan for EP study and Monday. Patient to be an oral Cardizem today sitting to IV Cardizem in the morning. Patient's had no further episodes of SVT since yesterday afternoon. Discussed with the patient. Active Medications Ascorbic Acid (Ascorbic Acid 500 Mg Tab) 500 mg PO DAILY [facility] Last Admin: 06/23/23 08:42 Dose: 500 mg Atorvastatin Calcium (Atorvastatin 20 Mg Tab) 20 mg PO DAILY [facility] Last Admin: 06/23/23 08:42 Dose: 20 mg Diltiazem HCl (Diltiazem Cd 180 Mg Cap.Er.24h) 360 mg PO DAILY [facility] Last Admin: 06/23/23 08:42 Dose: 360 mg Heparin Sodium (Porcine) (Heparin Sodium,Porcine 5,000 Unit/Ml 1 Ml Vial) 5,000 unit SQ Q8HR [facility] Last Admin: 06/23/23 08:42 Dose: 5,000 unit Sodium Chloride (Saline 0.9%) 1,000 mls @ 20 mls/hr IV .Q24H [facility] Last Admin: 06/23/23 05:00 Dose: Not Given Miscellaneous Information (Potassium Replacement Protocol 1 Each Misc) 1 each MISCELLANE DAILY PRN; Protocol PRN Reason: Per Protocol Multivitamins (Multivitamins, Thera 1 Each Tab) 1 each PO DAILY [facility] Last Admin: 06/23/23 08:42 Dose: 1 each Naloxone HCl (Naloxone 0.4 Mg/Ml 1 Ml Vial) 0.2 mg IV Q2M PRN PRN Reason: Opioid Reversal Raloxifene HCl (Raloxifene 60 Mg Tab) 60 mg PO DAILY [facility] Last Admin: 06/23/23 08:42 Dose: 60 mg Past medical history to include: Hyperlipidemia, osteoarthritis, left breast cancer with bilateral mastectomy with resulting left arm lymphedema Social history: . Does not smoke or drink alcohol Physical examination: VITAL SIGNS: 97.9, 88, 18, 10 9 x 73, 97% room air GENERAL: BMI 33.6, sitting up, comfortable EYES: Pupils equal. Conjunctiva normal. HEENT: External appearance of nose and ears normal, oral cavity grossly normal. NECK: JVD not raised; masses not palpable. HEART: First and second heart sounds are normal; no edema. LUNGS: Respiratory rate normal; clear to auscultation. ABDOMEN: Soft, nontender, liver spleen not palpable, no masses palpable. PSYCH: Alert and oriented x3; mood and affect normal. MUSCULOSKELETAL:No Clubbing/cyanosis;muscles-grossly intact. Oriented. Lymphedema of the left arm INVESTIGATIONS, reviewed in the clinical context: White count 7 hemoglobin 15.4 platelets 165 potassium 4.1 BUN 20 creatinine 0.61 TSH 1.8 EKG tracing personally reviewed by me-SVT. Grade 196. Some ST segment changes. Chest x-ray film personally reviewed by me-cardiomegaly. Assessment and plan: -Recurrent SVT with heart rate up to 190s. Patient's had symptoms since her childhood. Now symptomatic. Did have some relief with vagal maneuvers and beta blockers in the past. Initially put on IV Cardizem drip now started on oral Cardizem. Now on Cardizem CD 180 mg. Digoxin 125 g-discontinued Plan now for EP study on Monday. -Obesity BMI 33.6 Weight loss measures -Hyperlipidemia Zocor 40 mg daily -Primary osteoarthritis Tylenol as needed -Chronic left arm lymphedema following mastectomy for breast cancer Asymptomatic. -Full code
[2023-06-24] MEDS: HEPARIN SODIUM,PORCINE 5,000 UNIT/ML 1 ML VIAL SQ SCH ×3 (01:09→16:49)
[2023-06-24] MEDS: SODIUM CHLORIDE 0.9% 1,000 ML IV SCH ×3 (08:48→20:31)
[2023-06-24] MEDS: ATORVASTATIN 20 MG TAB PO SCH (09:00)
[2023-06-24] MEDS: ASCORBIC ACID 500 MG TAB PO SCH (09:00)
[2023-06-24] MEDS: MULTIVITAMINS, THERA 1 EACH TAB PO SCH (09:02)
[2023-06-24] MEDS: DILTIAZEM 125 MG in SODIUM CHLORIDE 0.9% 100 ML IV SCH (10:40)
--- NOTE | 2023-06-24 11:37 | P.PN ---
Subjective Progress Note Date: 06/24/23 This is Reese Montesinos NP, I'm dictating on behalf of Dr. Rea's H&P and A&P. Patient was interviewed and examined. Patient is a pleasant 67-year-old female with a history of irregular heart rhythm since her teenage years with documented tachycardia. She developed symptoms on Monday which included palpitations and elevated heart rate. She tried her beta td and vagal maneuvers which improved her heart rate, but it came back on Monday. Patient received a carotid massage in the office with conversion to normal sinus rhythm with a heart rate in the low 100s. After this the patient was subsequently sent to the hospital for further evaluation and admission. Patient has had no further episodes of SVT since yesterday. She is denying chest pain and shortness of breath at this time, as well as heart palpitations. Patient noted to have a heart rate within normal limits and is in normal sinus rhythm on telemetry. GENERAL: Well-appearing, well-nourished and in no acute distress. NECK: Supple without JVD or thyromegaly. LUNGS: Breath sounds clear to auscultation bilaterally. Respiration equal and unlabored. No wheezes, rales or rhonchi. HEART: Regular rate and rhythm without murmurs, rubs or gallops. S1 and S2 heard. EXTREMITIES: Normal range of motion, no edema. No clubbing or cyanosis. Peripheral pulses intact and strong. VITALS: Pulse 89, respirations 16, blood pressure 142/80, O2 saturation 96% on room air TELEMETRY: Normal sinus rhythm LABS: No new labs since 06/22/2023 IMPRESSION: 1. Paroxysmal SVT 2. Hyperlipidemia 3. History of breast cancer PLAN: Begin IV Cardizem at 10 mg per hour, no bolus. Discontinue by mouth Cardizem. Patient has been scheduled for electrophysiology study on Monday. Further recommendations based on patient's clinical course. Objective - Vital Signs Vital signs: Vital Signs Temp 97.5 F L 06/23/23 20:00 Pulse 89 06/24/23 08:00 Resp 16 06/24/23 08:00 BP 142/80 06/24/23 08:00 Pulse Ox 96 06/24/23 08:00 FiO2 Intake & Output 06/23/23 06/24/23 06/24/23 18:59 06:59 18:59 Intake Total 918 240 Balance 918 240 Intake: Oral 918 240 Other: Voiding Method Toilet Toilet Toilet # Voids 2 3 - Labs CBC & Chem 7: 06/21/23 04:11 06/21/23 09:50
[2023-06-24] MEDS: RALOXIFENE 60 MG TAB PO SCH (12:40)
--- NOTE | 2023-06-24 17:12 | P.PN ---
Progress Note - Text Progress Note Date: 06/24/23 Chief Complaint: Heart racing This is a pleasant 67-year-old patient who follows with Dr. Burnett. 2 days ago patient started experiencing heart racing. Some associated disease and ascending lightheadedness. Symptoms did not let down. She does follow with research and evaluation analyst Dr. Adam. She's had irregular heartbeat since her teenage years. And has been documented this tachycardia. She has been experiencing palpitations. He normally would use a beta td and vagal maneuvers and normally with slowing down. She came in to see Dr. Adam in the office and EKG showed SVT with a rate in the 190s. Scattered a carotid massage and the patient tolerated to sinus rhythm. Because of recurrent episodes she is brought into the ER and admitted to ICU. Initially started on IV Cardizem drip and switched over to oral Cardizem. 06/22/2023: Patient this afternoon and another episode of SVT. Had to be given adenosine. Patient's Cardizem has been further change to long-acting. Digoxin was added. Dr. Angel Bocanegra will follow the patient and hold the patient tonight for further observation. Patient to ambulate as tolerated. Discussed. 06/23/2023: Dr. Angel Bocanegra decided to keep the patient over the weekend. Plan for EP study and Monday. Patient to be an oral Cardizem today sitting to IV Cardizem in the morning. Patient's had no further episodes of SVT since yesterday afternoon. Discussed with the patient. 06/24/2023: Episode of tachyarrhythmia this morning. Some perspiration with that. Patient remains on IV Cardizem drip. Discussed with patient and at the bedside. Active Medications Ascorbic Acid (Ascorbic Acid 500 Mg Tab) 500 mg PO DAILY [facility] Last Admin: 06/24/23 09:00 Dose: 500 mg Atorvastatin Calcium (Atorvastatin 20 Mg Tab) 20 mg PO DAILY [facility] Last Admin: 06/24/23 09:00 Dose: 20 mg Heparin Sodium (Porcine) (Heparin Sodium,Porcine 5,000 Unit/Ml 1 Ml Vial) 5,000 unit SQ Q8HR [facility] Last Admin: 06/24/23 16:49 Dose: 5,000 unit Sodium Chloride (Saline 0.9%) 1,000 mls @ 20 mls/hr IV .Q24H [facility] Last Admin: 06/24/23 08:48 Dose: Not Given Sodium Chloride (Saline 0.9%) 1,000 mls @ 20 mls/hr IV .Q24H [facility] Diltiazem HCl 125 mg/ Sodium (Chloride) 125 mls @ 10 mls/hr IV .[id number] [facility] Last Admin: 06/24/23 10:40 Dose: 10 mg/hr, 10 mls/hr Miscellaneous Information (Potassium Replacement Protocol 1 Each Misc) 1 each MISCELLANE DAILY PRN; Protocol PRN Reason: Per Protocol Multivitamins (Multivitamins, Thera 1 Each Tab) 1 each PO DAILY [facility] Last Admin: 06/24/23 09:02 Dose: 1 each Naloxone HCl (Naloxone 0.4 Mg/Ml 1 Ml Vial) 0.2 mg IV Q2M PRN PRN Reason: Opioid Reversal Raloxifene HCl (Raloxifene 60 Mg Tab) 60 mg PO DAILY [facility] Last Admin: 06/24/23 12:40 Dose: 60 mg Past medical history to include: Hyperlipidemia, osteoarthritis, left breast cancer with bilateral mastectomy with resulting left arm lymphedema Social history: . Does not smoke or drink alcohol Physical examination: VITAL SIGNS: 62, 16, 1 35 x 65, 95% room air GENERAL: BMI 33.6, sitting up, comfortable EYES: Pupils equal. Conjunctiva normal. HEENT: External appearance of nose and ears normal, oral cavity grossly normal. NECK: JVD not raised; masses not palpable. HEART: First and second heart sounds are normal; no edema. LUNGS: Respiratory rate normal; clear to auscultation. ABDOMEN: Soft, nontender, liver spleen not palpable, no masses palpable. PSYCH: Alert and oriented x3; mood and affect normal. MUSCULOSKELETAL:No Clubbing/cyanosis;muscles-grossly intact. Oriented. Lymphedema of the left arm INVESTIGATIONS, reviewed in the clinical context: White count 7 hemoglobin 15.4 platelets 165 potassium 4.1 BUN 20 creatinine 0.61 TSH 1.8 EKG tracing personally reviewed by me-SVT. Grade 196. Some ST segment changes. Chest x-ray film personally reviewed by me-cardiomegaly. Assessment and plan: -Recurrent SVT with heart rate up to 190s. Patient's had symptoms since her childhood. Now symptomatic. Did have some relief with vagal maneuvers and beta blockers in the past. Initially put on IV Cardizem drip now started on oral Cardizem. Now on Cardizem IV drip Plan now for EP study on Monday. -Obesity BMI 33.6 Weight loss measures -Hyperlipidemia Zocor 40 mg daily -Primary osteoarthritis Tylenol as needed -Chronic left arm lymphedema following mastectomy for breast cancer Asymptomatic. -Full code Continue IV Cardizem drip. Plan for EP study and Monday.
[2023-06-25] MEDS: HEPARIN SODIUM,PORCINE 5,000 UNIT/ML 1 ML VIAL SQ SCH ×4 (00:53→23:05)
[2023-06-25] MEDS: DILTIAZEM 125 MG in SODIUM CHLORIDE 0.9% 100 ML IV SCH ×3 (00:53→20:22)
[2023-06-25 07:07] LABS: African American GFR (CKD) >90 (>60 ml/min/1.73 sqM); Anion Gap 8 mmol/L; Blood Urea Nitrogen 16 mg/dL (7-17); Calcium 8.6 mg/dL (8.4-10.2); Carbon Dioxide 21 mmol/L (22-30); Chloride 110 mmol/L (98-107); Glucose 115 mg/dL (74-99); Non-African American GFR(CKD) >90 (>60 ml/min/1.73 sqM); Potassium 4.4 mmol/L (3.5-5.1); Sodium 139 mmol/L (137-145)
[2023-06-25] MEDS: RALOXIFENE 60 MG TAB PO SCH (08:47)
[2023-06-25] MEDS: MULTIVITAMINS, THERA 1 EACH TAB PO SCH (08:47)
[2023-06-25] MEDS: ATORVASTATIN 20 MG TAB PO SCH (08:48)
[2023-06-25] MEDS: ASCORBIC ACID 500 MG TAB PO SCH (08:48)
--- NOTE | 2023-06-25 11:19 | P.PN ---
Subjective Progress Note Date: 06/25/23 This is Reese Montesinos NP, I'm dictating on behalf of Dr. Rea's H&P and A&P. Patient was interviewed and examined. Patient is a pleasant 67-year-old female who presented to the hospital with tachycardia dysrhythmia. Patient has had no SVT episodes again overnight. She is tolerating IV Cardizem well. She is denying chest pain, shortness of breath, and palpitations. She is able to walk to the bathroom without issue. GENERAL: Well-appearing, well-nourished and in no acute distress. NECK: Supple without JVD or thyromegaly. LUNGS: Breath sounds clear to auscultation bilaterally. Respiration equal and unlabored. No wheezes, rales or rhonchi. HEART: Regular rate and rhythm without murmurs, rubs or gallops. S1 and S2 heard. EXTREMITIES: Normal range of motion, no edema. No clubbing or cyanosis. Peripheral pulses intact and strong. VITALS: Pulse 77, respiratory rate 16, blood pressure 125/62, O2 saturation 97% on room air TELEMETRY: Normal sinus rhythm LABS: Sodium 139, potassium 4.4, B1 16, creatinine 0.62, calcium 8.6 IMPRESSION: 1. Paroxysmal SVT 2. Hyperlipidemia 3. History of breast cancer PLAN: Continue IV Cardizem at this time. EP study scheduled for tomorrow. Further recommendations based on patient's clinical course. Objective - Vital Signs Vital signs: Vital Signs Temp 98 F 06/24/23 20:00 Pulse 77 06/25/23 08:00 Resp 16 06/25/23 08:00 BP 125/62 06/25/23 08:00 Pulse Ox 97 06/25/23 08:00 FiO2 Intake & Output 06/24/23 06/25/23 06/25/23 18:59 06:59 18:59 Intake Total 480 125 79.333 Balance 480 125 79.333 Intake: Intake, IV Titration 125 79.333 Amount Diltiazem 125 mg In 125 79.333 Sodium Chloride 0.9% 100 ml @ 10 MG/HR 10 mls/hr IV .[id number] [facility] Rx#: [id number] Oral 480 Other: Voiding Method Toilet Toilet Toilet # Voids 2 - Labs CBC & Chem 7: 06/21/23 04:11 06/25/23 06:39 Labs: Abnormal Lab Results - Last 24 Hours (Table) 06/25/23 Range/Units 06:39 Chloride 110 H (98-107) mmol/L Carbon Dioxide 21 L (22-30) mmol/L Glucose 115 H (74-99) mg/dL
--- NOTE | 2023-06-25 14:06 | P.PN ---
Progress Note - Text Progress Note Date: 06/25/23 Chief Complaint: Heart racing This is a pleasant 67-year-old patient who follows with Dr. Burnett. 2 days ago patient started experiencing heart racing. Some associated disease and ascending lightheadedness. Symptoms did not let down. She does follow with pusher runner Dr. Adam. She's had irregular heartbeat since her teenage years. And has been documented this tachycardia. She has been experiencing palpitations. He normally would use a beta td and vagal maneuvers and normally with slowing down. She came in to see Dr. Adam in the office and EKG showed SVT with a rate in the 190s. Scattered a carotid massage and the patient tolerated to sinus rhythm. Because of recurrent episodes she is brought into the ER and admitted to ICU. Initially started on IV Cardizem drip and switched over to oral Cardizem. 06/22/2023: Patient this afternoon and another episode of SVT. Had to be given adenosine. Patient's Cardizem has been further change to long-acting. Digoxin was added. Dr. Angel Bocanegra will follow the patient and hold the patient tonight for further observation. Patient to ambulate as tolerated. Discussed. 06/23/2023: Dr. Angel Bocanegra decided to keep the patient over the weekend. Plan for EP study and Monday. Patient to be an oral Cardizem today sitting to IV Cardizem in the morning. Patient's had no further episodes of SVT since yesterday afternoon. Discussed with the patient. 06/24/2023: Episode of tachyarrhythmia this morning. Some perspiration with that. Patient remains on IV Cardizem drip. Discussed with patient and at the bedside. 06/25/2023: Remains on IV Cardizem drip. Planning for EP study tomorrow per Dr. Rea. Currently asymptomatic. Active Medications Ascorbic Acid (Ascorbic Acid 500 Mg Tab) 500 mg PO DAILY [facility] Last Admin: 06/25/23 08:48 Dose: 500 mg Atorvastatin Calcium (Atorvastatin 20 Mg Tab) 20 mg PO DAILY [facility] Last Admin: 06/25/23 08:48 Dose: 20 mg Heparin Sodium (Porcine) (Heparin Sodium,Porcine 5,000 Unit/Ml 1 Ml Vial) 5,000 unit SQ Q8HR [facility] Last Admin: 06/25/23 08:48 Dose: 5,000 unit Sodium Chloride (Saline 0.9%) 1,000 mls @ 20 mls/hr IV .Q24H [facility] Last Admin: 06/24/23 20:31 Dose: Not Given Sodium Chloride (Saline 0.9%) 1,000 mls @ 20 mls/hr IV .Q24H [facility] Last Admin: 06/24/23 20:31 Dose: Not Given Diltiazem HCl 125 mg/ Sodium (Chloride) 125 mls @ 10 mls/hr IV .[id number] [facility] Last Admin: 06/25/23 08:49 Dose: 10 mg/hr, 10 mls/hr Miscellaneous Information (Potassium Replacement Protocol 1 Each Misc) 1 each MISCELLANE DAILY PRN; Protocol PRN Reason: Per Protocol Multivitamins (Multivitamins, Thera 1 Each Tab) 1 each PO DAILY [facility] Last Admin: 06/25/23 08:47 Dose: 1 each Naloxone HCl (Naloxone 0.4 Mg/Ml 1 Ml Vial) 0.2 mg IV Q2M PRN PRN Reason: Opioid Reversal Raloxifene HCl (Raloxifene 60 Mg Tab) 60 mg PO DAILY [facility] Last Admin: 06/25/23 08:47 Dose: 60 mg Past medical history to include: Hyperlipidemia, osteoarthritis, left breast cancer with bilateral mastectomy with resulting left arm lymphedema Social history: . Does not smoke or drink alcohol Physical examination: VITAL SIGNS: Afebrile, 97, 16, 134/81, 97% room air GENERAL: Up in chair, comfortable EYES: Pupils equal. Conjunctiva normal. HEENT: External appearance of nose and ears normal, oral cavity grossly normal. NECK: JVD not raised; masses not palpable. HEART: First and second heart sounds are normal; no edema. LUNGS: Respiratory rate normal; clear to auscultation. ABDOMEN: Soft, nontender, liver spleen not palpable, no masses palpable. PSYCH: Alert and oriented x3; mood and affect normal. MUSCULOSKELETAL:No Clubbing/cyanosis;muscles-grossly intact. Oriented. Lymphedema of the left arm INVESTIGATIONS, reviewed in the clinical context: White count 7 hemoglobin 15.4 platelets 165 potassium 4.1 BUN 20 creatinine 0.61 TSH 1.8 EKG tracing personally reviewed by Connie. Grade 196. Some ST segment changes. Chest x-ray film personally reviewed by me-cardiomegaly. Assessment and plan: -Recurrent SVT with heart rate up to 190s. Patient's had symptoms since her childhood. Now symptomatic. Did have some relief with vagal maneuvers and beta blockers in the past. Initially put on IV Cardizem drip now started on oral Cardizem. Continue Cardizem IV drip Plan now for EP study on Monday. -Obesity BMI 33.6 Weight loss measures -Hyperlipidemia Zocor 40 mg daily -Primary osteoarthritis Tylenol as needed -Chronic left arm lymphedema following mastectomy for breast cancer Asymptomatic. -Full code Continue IV Cardizem drip. Plan for EP study Monday. Discussed
[2023-06-25] MEDS: SODIUM CHLORIDE 0.9% 1,000 ML IV SCH ×2 (19:38→20:22)
[2023-06-26] MEDS: MULTIVITAMINS, THERA 1 EACH TAB PO SCH (08:36)
[2023-06-26] MEDS: RALOXIFENE 60 MG TAB PO SCH (08:36)
[2023-06-26] MEDS: ATORVASTATIN 20 MG TAB PO SCH (08:36)
[2023-06-26] MEDS: HEPARIN SODIUM,PORCINE 5,000 UNIT/ML 1 ML VIAL SQ SCH ×3 (08:36→23:26)
[2023-06-26] MEDS: ASCORBIC ACID 500 MG TAB PO SCH (08:36)
[2023-06-26] MEDS: DILTIAZEM 125 MG in SODIUM CHLORIDE 0.9% 100 ML IV SCH (08:39)
[2023-06-26] MEDS: SODIUM CHLORIDE 0.9% 1,000 ML IV SCH (11:06)
[2023-06-26] MEDS ORDERED: MIDAZOLAM 2 MG/2 ML VIAL ONE (11:38)
[2023-06-26] MEDS ORDERED: diphenhydrAMINE 50 MG/ML 1 ML VIAL ONE (11:38)
[2023-06-26] MEDS ORDERED: fentaNYL (PF) 50 MCG/ML 2 ML AMP ONE (11:38)
[2023-06-26] MEDS ORDERED: HEPARIN SODIUM,PORCINE 10,000 UNIT/ML 1 ML VIAL ONE (11:38)
[2023-06-26] MEDS ORDERED: IV FLUID CONTINUATION 700 ML IV ONE (11:38)
[2023-06-26] MEDS ORDERED: ISOPROTERENOL 250 MCG/1.25 ML SYR IV ONE (11:38)
--- NOTE | 2023-06-26 11:47 | P.PN ---
Subjective This is a pleasant 67-year-old patient who follows with Dr. Burnett. 2 days ago patient started experiencing heart racing. Some associated disease and ascending lightheadedness. Symptoms did not let down. She does follow with emergency medcl emt Dr. Adam. She's had irregular heartbeat since her teenage years. And has been documented this tachycardia. She has been experiencing palpitations. He normally would use a beta td and vagal maneuvers and normally with slowing down. She came in to see Dr. Adam in the office and EKG showed SVT with a rate in the 190s. Scattered a carotid massage and the patient tolerated to sinus rhythm. Because of recurrent episodes she is brought into the ER and admitted to ICU. Initially started on IV Cardizem drip and switched over to oral Cardizem. 06/22/2023: Patient this afternoon and another episode of SVT. Had to be given adenosine. Patient's Cardizem has been further change to long-acting. Digoxin was added. Dr. Angel Bocanegra will follow the patient and hold the patient tonight for further observation. Patient to ambulate as tolerated. Discussed. 06/23/2023: Dr. Angel Bocanegra decided to keep the patient over the weekend. Plan for EP study and Monday. Patient to be an oral Cardizem today sitting to IV Cardizem in the morning. Patient's had no further episodes of SVT since yesterday afternoon. Discussed with the patient. 06/24/2023: Episode of tachyarrhythmia this morning. Some perspiration with that. Patient remains on IV Cardizem drip. Discussed with patient and at the bedside. 06/25/2023: Remains on IV Cardizem drip. Planning for EP study tomorrow per Dr. Rea. Currently asymptomatic. 06/26/2023 Patient admitted with tachyarrhythmia with EKG showing evidence of supraventricular tachycardia when she came in because of palpitation on 06/20 Currently she Cardizem Drip with the Plan for EP Study Today with Physician Industrial Team Patient Denies Any Other Symptoms, We'll Keep Following up Objective - Vital Signs Vital signs: Vital Signs Temp 98 F 06/25/23 20:00 Pulse 77 06/26/23 04:00 Resp 16 06/26/23 04:00 BP 119/62 06/26/23 04:00 Pulse Ox 94 L 06/26/23 08:09 FiO2 Intake & Output 06/25/23 06/26/23 06/26/23 18:59 06:59 18:59 Intake Total 559.333 115.5 122.833 Balance 559.333 115.5 122.833 Intake: Intake, IV Titration 79.333 115.5 122.833 Amount Diltiazem 125 mg In 79.333 115.5 122.833 Sodium Chloride 0.9% 100 ml @ 10 MG/HR 10 mls/hr IV .[id number] [facility] Rx#: [id number] Oral 480 Other: Voiding Method Toilet Toilet # Voids 2 1 - Exam GENERAL: The patient is alert and oriented x3, not in any acute distress. Well developed, well nourished. HEENT: Pupils are round and equally reacting to light. EOMI. No scleral icterus. No conjunctival pallor. Normocephalic, atraumatic. No pharyngeal erythema. No thyromegaly. CARDIOVASCULAR: S1 and S2 present. No murmurs, rubs, or gallops. PULMONARY: Chest is clear to auscultation, no wheezing , no crackles. ABDOMEN: Soft, nontender, nondistended, normoactive bowel sounds. No palpable organomegaly. MUSCULOSKELETAL: No joint swelling or deformity. EXTREMITIES: No cyanosis, clubbing, or pedal edema. NEUROLOGICAL: Gross neurological examination did not reveal any focal deficits. SKIN: No rashes. no petechiae. - Labs CBC & Chem 7: 06/21/23 04:11 06/25/23 06:39 Assessment and Plan Assessment: -Recurrent SVT with heart rate up to 190s. Patient's had symptoms since her childhood. Now symptomatic. Did have some relief with vagal maneuvers and beta blockers in the past. Initially put on IV Cardizem drip now started on oral Cardizem. Continue Cardizem IV drip Plan now for EP study on Monday. -Obesity BMI 33.6 Weight loss measures -Hyperlipidemia Zocor 40 mg daily -Primary osteoarthritis Tylenol as needed -Chronic left arm lymphedema following mastectomy for breast cancer Asymptomatic. -Full code
[2023-06-26] MEDS ORDERED: LIDOCAINE 1% INJ 10MG/ML (20 ML MDV) ONE (12:02)
--- NOTE | 2023-06-26 12:06 | P.PN ---
Subjective Progress Note Date: 06/26/23 Patient was interviewed and examined. Patient is a pleasant 67-year-old female who presented to the hospital with tachycardia dysrhythmia. Patient has had no SVT episodes again overnight. She is tolerating IV Cardizem well. She is denying chest pain, shortness of breath, and palpitations. She is able to walk to the bathroom without issue. VITALS: Pulse 77, respiratory rate 16, blood pressure 125/62, O2 saturation 97% on room air TELEMETRY: Normal sinus rhythm LABS: Sodium 139, potassium 4.4, B1 16, creatinine 0.62, calcium 8.6 06/26 Patient denies any events overnight. No palpitations no chest pain. She is currently in a sinus rhythm running 96, blood pressure 119/62. Patient is scheduled for EP study/ablation today. Repeat blood work reveals sodium 139, potassium 4.4, CO2 21, creatinine 0.62. TSH was 1.87. GENERAL: Well-appearing, well-nourished and in no acute distress. NECK: Supple without JVD or thyromegaly. LUNGS: Breath sounds clear to auscultation bilaterally. Respiration equal and unlabored. No wheezes, rales or rhonchi. HEART: Regular rate and rhythm without murmurs, rubs or gallops. S1 and S2 heard. EXTREMITIES: Normal range of motion, no edema. No clubbing or cyanosis. Peripheral pulses intact and strong. IMPRESSION: 1. Paroxysmal SVT 2. Hyperlipidemia 3. History of breast cancer PLAN: Continue IV Cardizem at this time. EP study scheduled for today. Further recommendations based on patient's clinical course. Nurse practitioner note has been reviewed, I agree with the documented findings and plan of care. Patient was seen and examined. Objective - Vital Signs Vital signs: Vital Signs Temp 98 F 06/25/23 20:00 Pulse 77 06/26/23 04:00 Resp 16 06/26/23 04:00 BP 119/62 06/26/23 04:00 Pulse Ox 94 L 06/26/23 08:09 FiO2 Intake & Output 06/25/23 06/26/23 06/26/23 18:59 06:59 18:59 Intake Total 559.333 115.5 Balance 559.333 115.5 Intake: Intake, IV Titration 79.333 115.5 Amount Diltiazem 125 mg In 79.333 115.5 Sodium Chloride 0.9% 100 ml @ 10 MG/HR 10 mls/hr IV .[id number] [facility] Rx#: [id number] Oral 480 Other: Voiding Method Toilet Toilet # Voids 2 - Labs CBC & Chem 7: 06/21/23 04:11 06/25/23 06:39
[2023-06-26] MEDS ORDERED: LIDOCAINE 1% INJ 10MG/ML (30 ML VIAL-PF) SQ ONE ×2 (12:26)
[2023-06-26] MEDS ORDERED: HEPARIN SODIUM 1,000 UN/ML (10ML VL) ONE (13:36)
[2023-06-26] MEDS ORDERED: HEPARIN SODIUM (1,000 UNIT/ML) 1,000 UNIT in SODIUM CHLORIDE 0.9% 1,000 ML IRRIGATION ONE (14:18)
[2023-06-26] MEDS ORDERED: ADENOSINE 3 MG/ML 4 ML VIAL ONE (14:54)
--- NOTE | 2023-06-26 16:11 | P.EPPROC ---
- EP Procedure Note Electrophysiology Procedure Note: Diagnosis Recurrent SVT Failed drug therapy Final diagnosis Orthodromic SVT Left lateral accessory pathway, retrogradely conducting only Status post successful ablation and elevation of the retrogradely conducting accessory pathway Details Patient was brought to the EP lab in a fasting state. Written informed consent was obtained prior to procedure. Conscious sedation provided by anesthesia. Venous sheaths were placed in the right and left femoral veins and diagnostic catheters placed in the high right atrium, His bundle area, right ventricle and coronary sinus Later in the left atrium Sinus cycle length 856 ms, WA interval 163 ms, QRS 86 ms and QT 446 ms AH interval 89 ms and HV interval 41 ms Sinus recovery times at 600 500 and, 400 ms were 1063, 1336 and 1166 ms. AV node Wenckebach block 430 ms VA Wenckebach block 330 ms No antegrade accessory pathway conduction line no evidence for slow pathway conduction VA ERP of the accessory pathway was 500/4:30 milliseconds VA ERP of AV node was 500/350 ms Atrial extra stimulation performed from the RV Rylan sinus and the right atrium Isuprel started wide open AV node Wenckebach block 280 ms VA Wenckebach block 260 ms With straight pacing from Rylan sinus, orthodromic AVRT induced with eccentric retrograde activation Coronary sinus catheter repositioned to [] the location of the accessory pathway Left and right transseptal catheterization performed LA pressure 20/0/8 mmHg Irrigated tip catheter placed along the sheath in the left atrium The lateral mitral annulus was mapped during orthodromic reentry as well as with ventricular pacing The atrial end of the accessory pathway was carefully mapped RF ablation was performed using up to 40 walks of power with good contact force The first lesion resulted in elimination of the pathway Thereafter there was no evidence for accessory pathway conduction Bolus lesions or applied in the vicinity of the successful lesion IV adenosine with V pacing was performed There was no evidence for accessory pathway conduction High-dose Isuprel given and a full EP study performed No evidence for SVT No evidence for retrogradely conducting accessory pathway The patient tolerated the procedure well without any acute complications. Plan aspirin 325 mg once daily 1 month and then back to 81 mg by mouth daily. Discussed with the patient
[2023-06-26] MEDS: ASPIRIN 325 MG TAB PO SCH (17:07)
[2023-06-27] MEDS: ATORVASTATIN 20 MG TAB PO SCH (08:44)
[2023-06-27] MEDS: ASCORBIC ACID 500 MG TAB PO SCH (08:44)
[2023-06-27] MEDS: RALOXIFENE 60 MG TAB PO SCH (08:44)
[2023-06-27] MEDS: MULTIVITAMINS, THERA 1 EACH TAB PO SCH (08:44)
[2023-06-27] MEDS: ASPIRIN 325 MG TAB PO SCH (08:44)
[2023-06-27] MEDS: HEPARIN SODIUM,PORCINE 5,000 UNIT/ML 1 ML VIAL SQ SCH (08:44)
[2023-06-27 10:16] VITALS: BP 129/74; PULSE 100; RESP 18; TEMP 97.9
--- NOTE | 2023-06-27 10:28 | P.PN ---
Subjective Progress Note Date: 06/27/23 Patient was interviewed and examined. Patient is a pleasant 67-year-old female who presented to the hospital with tachycardia dysrhythmia. Patient has had no SVT episodes again overnight. She is tolerating IV Cardizem well. She is denying chest pain, shortness of breath, and palpitations. She is able to walk to the bathroom without issue. VITALS: Pulse 77, respiratory rate 16, blood pressure 125/62, O2 saturation 97% on room air TELEMETRY: Normal sinus rhythm LABS: Sodium 139, potassium 4.4, B1 16, creatinine 0.62, calcium 8.6 06/26 Patient denies any events overnight. No palpitations no chest pain. She is currently in a sinus rhythm running 96, blood pressure 119/62. Patient is scheduled for EP study/ablation today. Repeat blood work reveals sodium 139, potassium 4.4, CO2 21, creatinine 0.62. TSH was 1.87. 06/27 Yesterday, patient underwent ablation for SVT. Patient is to continue on aspirin 325 mg for one month. Patient denies any new concerns today. She has no nausea, no palpitations, no lightheadedness or dizziness, no chest pain. Patient seemed to be tachycardic this morning an EKG was done which revealed a sinus rhythm running at 96 bpm. Heart rate is running in the 90s. Blood pressure 129/74. GENERAL: Well-appearing, well-nourished and in no acute distress. NECK: Supple without JVD or thyromegaly. LUNGS: Breath sounds clear to auscultation bilaterally. Respiration equal and unlabored. No wheezes, rales or rhonchi. HEART: Regular rate and rhythm without murmurs, rubs or gallops. S1 and S2 heard. EXTREMITIES: Normal range of motion, no edema. No clubbing or cyanosis. Peripheral pulses intact and strong. IMPRESSION: 1. Paroxysmal SVT status post ablation 2. Hyperlipidemia 3. History of breast cancer PLAN: Continue patient on current medications Continue aspirin 325 mg daily for 1 month Patient is cleared from cardiology for discharge and may follow-up in the office with Dr. Adam as scheduled. Nurse practitioner note has been reviewed, I agree with the documented findings and plan of care. Patient was seen and examined. Objective - Vital Signs Vital signs: Vital Signs Temp 97.8 F 06/27/23 03:36 Pulse 96 06/27/23 03:36 Resp 16 06/27/23 03:36 BP 139/88 06/27/23 03:36 Pulse Ox 98 06/27/23 03:36 FiO2 Intake & Output 06/26/23 06/27/23 06/27/23 18:59 06:59 18:59 Intake Total 932.833 Balance 932.833 Intake: IV 690 Intake, IV Titration 122.833 Amount Diltiazem 125 mg In 122.833 Sodium Chloride 0.9% 100 ml @ 10 MG/HR 10 mls/hr IV .[id number] [facility] Rx#: [id number] Oral 120 Other: Voiding Method Toilet # Voids 0 2 - Labs CBC & Chem 7: 06/21/23 04:11 06/25/23 06:39
[2023-06-27 12:49] VITALS: BMI 33.6
--- NOTE | 2023-06-27 20:23 | P.DS ---
Providers Date of admission: 06/20/23 19:34 Attending physician: Jared Rose Consults: 06/20/23 19:34 Consult Physician Routine Consulting Provider: Angel Rea Consult Reason/Comments: tachydyrhythmia Do you want consulting provider notified?: Yes Consult Physician Stat Consulting Provider: Asad Boston Consult Reason/Comments: icu patient Do you want consulting provider notified?: Already Contacted Primary care physician: Marcus [facility] Course: Diagnoses: -Recurrent SVT , s/p EP study and ablation. Result -Obesity BMI 33.6 -Hyperlipidemia -Primary osteoarthritis -Chronic left arm lymphedema following mastectomy for breast cancer Hospital course: This is a pleasant 67-year-old patient who follows with Dr. Burnett. 2 days ago patient started experiencing heart racing. Some associated disease and ascending lightheadedness. Symptoms did not let down. She does follow with character actress Dr. Adam. She's had irregular heartbeat since her teenage years. And has been documented this tachycardia. She has been experiencing palpitations. He normally would use a beta td and vagal maneuvers and normally with slowing down. She came in to see Dr. Adam in the office and EKG showed SVT with a rate in the 190s. Patient evaluated by character actress and she underwent ablation procedure with EP character actress Dr. Marsh. After the procedure heart rate controlled and problem resolved for now. Patient is asymptomatic upon discharge The case with Dr. Fernandez who cleared her for discharge today. Beta td was stopped and character actress recommended aspirin 325 mg times one month and then lowered to 81 mg daily, patient informed with these recommendation and she agrees Problems and management plan were discussed with the patient and he verbalized understanding and acceptance Patient was found stable and can be discharged home in guarded prognosis however he needs follow-up as an outpatient. Patient was instructed to follow up with PCP to this within one week and patient agrees Patient was instructed to follow up with Dr. Adam in one week and she agrees Physical exam Gen: patient is a AAOx3, no distress CVS: S1-S2, RRR, no murmur Lungs: B/L CTA, no wheezing Abdomen: soft, no distention, no tenderness, positive bowel sounds Extremity: no leg edema or induration Time spent more than 35 minutes Patient Condition at Discharge: Serious Plan - Discharge Summary New Discharge Prescriptions: New Aspirin EC [Ecotrin] 325 mg PO DAILY #90 tab Metoprolol Succinate (ER) [Toprol Xl] 12.5 mg PO DAILY #1 tab Continue Glucosamine Sulfate 500 mg PO DAILY Simvastatin [Zocor] 40 mg PO DAILY Multivitamins, Thera [Multivitamin (formulary)] 1 tab PO DAILY Ascorbic Acid [Vitamin C] 1 tab PO DAILY Zinc 50 mg PO DAILY Berlin-3 Fatty Acids/Fish Oil [Berlin-3 Fish Oil 1,200 mg Sfgl] 1 cap PO DAILY Raloxifene [Evista] 60 mg PO DAILY Quercetin 500 mg PO DAILY Calcium Carbonate/Vitamin D3 [Calcium 600 mg-D3 10 Mcg (400 Iu)] 2 cap PO DAILY Discontinued Metoprolol Succinate (ER) [Toprol Xl] 12.5 mg PO DAILY Aspirin EC [Ecotrin Low Dose] 81 mg PO DAILY No Action Loratadine [Claritin] 10 mg PO DAILY PRN PRN Reason: Allergy Symptoms Discharge Medication List Ascorbic Acid [Vitamin C] 1 tab PO DAILY 12/27/16 [History] Glucosamine Sulfate 500 mg PO DAILY 12/27/16 [History] Multivitamins, Thera [Multivitamin (formulary)] 1 tab PO DAILY 12/27/16 [History] Simvastatin [Zocor] 40 mg PO DAILY 12/27/16 [History] Calcium Carbonate/Vitamin D3 [Calcium 600 mg-D3 10 Mcg (400 Iu)] 2 cap PO DAILY 04/28/22 [History] Berlin-3 Fatty Acids/Fish Oil [Berlin-3 Fish Oil 1,200 mg Sfgl] 1 cap PO DAILY 04/28/22 [History] Quercetin 500 mg PO DAILY 04/28/22 [History] Raloxifene [Evista] 60 mg PO DAILY 04/28/22 [History] Zinc 50 mg PO DAILY 04/28/22 [History] Loratadine [Claritin] 10 mg PO DAILY PRN 06/20/23 [History] Aspirin EC [Ecotrin] 325 mg PO DAILY #90 tab 06/26/23 [Rx] Metoprolol Succinate (ER) [Toprol Xl] 12.5 mg PO DAILY #1 tab 06/27/23 [Rx] Follow up Appointment(s)/Referral(s): Marcus Burnett DO [Primary Care Provider] - 1-2 days (Office will call you with appointment date and time. ) Rolo Adam MD [STAFF PHYSICIAN] - 07/05/23 3:30 pm (Followed as Rebecca in 1 week Aspirin 325 mg, coated for one month then back down to 81 mg by mouth daily) Patient Instructions/Handouts: Heart Healthy Diet (DC), Cardiac Ablation (DC) Activity/Diet/Wound Care/Special Instructions: heart healthy diet activity is restricted till you see your doctor we recommend aspirin 325 mg once daily 1 month and then back to 81 mg by mouth daily Discharge Disposition: HOME SELF-CARE
== END 2023-06-27 14:44 | disposition home or self-care (01) | DRG 274 ==
LOC: EC 17:37 → 2SICU 19:34 → 3SCARD 06-21 18:28
PROVIDERS: ADMIT Hospitalist; ATTEND Hospitalist
PROC: 02583ZZ Destruction of Conduction Mechanism, Percutaneous Approach (ICD-10-PCS; principal; 2023-06-20)
PROC: 4A023FZ Measurement of Cardiac Rhythm, Percutaneous Approach (ICD-10-PCS; 2023-06-20)
PROC: 02K83ZZ Map Conduction Mechanism, Percutaneous Approach (ICD-10-PCS; 2023-06-20)
DX: I47.1 Supraventricular tachycardia (principal); E78.5 Hyperlipidemia, unspecified; I89.0 Lymphedema, not elsewhere classified; M19.91 Primary osteoarthritis, unspecified site; E66.9 Obesity, unspecified; Z79.82 Long term (current) use of aspirin; Z79.899 Other long term (current) drug therapy; Z90.13 Acquired absence of bilateral breasts and nipples; Z85.3 Personal history of malignant neoplasm of breast; Z68.33 Body mass index [BMI] 33.0-33.9, adult
CPT/HCPCS: 36415; 71045; 80048; 80053; 83735; 84132; 84443; 85025; 85027; 93005; 93462; 93623; 93653; 93662; 94760; 96365; 96366; 99291